=== PATIENT | female | born 1965 | race Caucasian/White ===

== ENCOUNTER 2021-09-19 08:57 | Outpatient (CLI) | payer OTHER, SELFPAY ==
--- NOTE | ~2021-09-19 | MM_ITS ---
EXAMINATION: MM screening mammo implant BI HISTORY: Screening mammogram TECHNIQUE: Craniocaudal and mediolateral oblique images with additional MLO and cc implant displaceme nt views on the left. Craniocaudal and mediolateral oblique views of the breasts without implant disp lacement were obtained using full field digital mammography. CAD analysis was submitted and interpret ed. COMPARISON: 06/01/2018 bilateral diagnostic implant mammogram and limited right breast ultrasound BREAST PARENCHYMAL COMPOSITION: The breasts are heterogeneously dense, which may obscure small masses . FINDINGS: Bilateral breast implants are noted, the right implant is collapsed. There is no evidence o f suspicious mass, calcification, or architectural distortion to suggest malignancy in either breast. There has been no suspicious interval change. IMPRESSION: 1. No mammographic evidence of malignancy. 2. Recommend routine screening mammography in one year. BI-RADS Category 1: Negative Reviewed, dictated and finalized at location A.
== END 2021-09-19 08:58 | disposition home or self-care (01) ==
LOC: ANHIMG 08:59
PROVIDERS: PCP Family Medicine; Visit Provider Obstetrics & Gynecology
DX: Z12.31 Encounter for screening mammogram for malignant neoplasm of breast (principal)
CPT/HCPCS: 77067

== ENCOUNTER 2022-04-02 12:01 | Outpatient (CLI) | payer OTHER, SELFPAY ==
--- NOTE | ~2022-04-02 | US_ITS ---
EXAMINATION: US pelvic complete w TV DATE: 04/02/2022 15:22 INDICATION: Enlarged uterus. TECHNIQUE: Multiple transabdominal and transvaginal sonographic images of the pelvis were obtained. COMPARISON: None. FINDINGS: TRANSABDOMINAL ULTRASOUND: The uterus measures 9.0 x 6.7 x 5.4 cm. There is no free fluid in the pelvis. TRANSVAGINAL ULTRASOUND: The endometrial complex measures 5 mm in thickness. There are nabothian cysts in the cervix measuring up to 5 mm. There is a 1.7 cm intramural fibroid. The right ovary is not visualized. The left ovary measures 2.3 x 2.0 x 2.2 cm. There is normal vascular flow in left ovary. IMPRESSION: 1. Uterine fibroid. 2. Small nabothian cysts in the cervix. Reviewed, dictated and finalized at location B.
--- NOTE | ~2022-04-02 | MMUS_ITS ---
EXAMINATION: MM diagnostic mammo BI, US breast BI complete HISTORY: Palpable lump at 2:00 area of left breast. History of collapsed right breast implant. TECHNIQUE: ML, MLO and CC implant and implant displaced views CAD analysis was submitted and interpre holly. High resolution bilateral complete breast ultrasound was performed, including all 4 quadrants an d subareolar areas. COMPARISON: 09/19/2021 bilateral implant screening mammogram 06/01/2018 bilateral implant diagnostic mammogram and limited right breast ultrasound BREAST PARENCHYMAL COMPOSITION: The breasts are heterogeneously dense, which may obscure small masses . FINDINGS: MAMMOGRAPHIC FINDINGS: Chronic collapsed right breast implant. Left breast implant appears intact and stable since 1. No suspicious mass or architectural distortion, malignant constipation, skin thickening or retraction of either breast is evident. There is heterogeneously dense stroma bilaterally which may obscure small masses. Given the complaint of left breast lump and the dense stroma, bilateral complete ultrasound examination was performed. ULTRASOUND: No suspicious mass or shadowing of either breast is detected. At 2:00 position of left breast there is a parallel circumscribed benign-appearing lymph node measuri ng 3.3 x 7.9 x 4.1 mm. In the retroareolar area of the left breast there is a parallel circumscribed sonolucency adjacent to the implant, measuring 5.9 x 6.9 x 2 mm, without suspicious shadowing, benign in appearance. IMPRESSION: 1. Benign findings; no mammographic evidence of malignancy Chronic collapse right breast implant 2. Routine mammographic screening is recommended BI-RADS Category 2: Benign finding(s). Reviewed, dictated and finalized at location A. IMPRESSION: 1. Benign findings; no mammographic evidence of malignancy Chronic collapse right breast implant 2. Routine mammographic screening is recommended BI-RADS Category 2: Benign finding(s).
== END 2022-04-02 12:02 | disposition home or self-care (01) ==
PROVIDERS: PCP Family Medicine; Visit Provider Obstetrics & Gynecology
DX: N85.2 Hypertrophy of uterus (principal); N92.6 Irregular menstruation, unspecified; N63.22 Unspecified lump in the left breast, upper inner quadrant; D25.9 Leiomyoma of uterus, unspecified; N88.8 Other specified noninflammatory disorders of cervix uteri
CPT/HCPCS: 76641; 76830; 76856; 77066

== ENCOUNTER → 2023-01-16 13:20 | Outpatient (CLI) | payer OTHER, SELFPAY ==
--- NOTE | ~2023-01-16 | MM_ITS ---
EXAMINATION: MM scrn ayo implant BI w lise HISTORY: Screening mammogram TECHNIQUE: Craniocaudal and mediolateral oblique 3-D tomosynthesis images with implant displacement a nd synthetic 2-D images were generated. Craniocaudal and mediolateral oblique views of the breasts wi thout implant displacement were obtained using full field digital mammography. CAD analysis was submi tted and interpreted. COMPARISON: 04/02/2022 diagnostic bilateral mammogram and bilateral complete breast ultrasound 09/19/2021 bilateral screening mammogram BREAST PARENCHYMAL COMPOSITION: The breasts are extremely dense, which lowers the sensitivity of mamm ography. FINDINGS: Chronic right breast implant rupture. There is no evidence of suspicious mass, calcificatio n, or architectural distortion to suggest malignancy in either breast. There has been no suspicious i nterval change. IMPRESSION: 1. No mammographic evidence of malignancy. 2. Recommend routine screening mammography in one year. BI-RADS Category 1: Negative Reviewed, dictated and finalized at location A. Y LEVEL
--- NOTE | ~2023-01-16 | US_ITS ---
EXAMINATION: US pelvic complete w TV DATE: 01/16/2023 14:36 INDICATION: Postmenopausal bleeding Comparison:04/02/2022 TECHNIQUE: Multiple transabdominal and endovaginal sonographic images of the pelvis performed. FINDINGS: The uterus measures 10.9 x 5 x 6.1 cm. The endometrial complex measures 1.7 cm. The right ovary is not visualized, likely atrophic. There are left ovarian follicles and cysts, large st measuring 2.5 cm. Left ovary measures 5 x 3.7 x 2.4 cm. There is a small uterine fibroid measuring 1.7 cm. There are nabothian cysts. There is no free fluid in the pelvis. IMPRESSION: 1. . Thickened endomtrial complex. The differential diagnosis includes endometrial hyperplasia, polyp and carcinoma. Biopsy is recommended. 2: Small uterine fibroid measuring 1.7 cm. Reviewed, dictated and finalized at location A. EGE SCOUTING COORDINATOR IMPRESSION: 1. . Thickened endomtrial complex. The differential diagnosis includes endometr ial hyperplasia, polyp and carcinoma. Biopsy is recommended. 2: Small uterine fibroid measuring 1.7 cm.
== END ==
PROVIDERS: PCP Family Medicine; Visit Provider Obstetrics & Gynecology
DX: Z12.31 Encounter for screening mammogram for malignant neoplasm of breast (principal); N95.0 Postmenopausal bleeding; D25.9 Leiomyoma of uterus, unspecified; R93.89 Abnormal findings on diagnostic imaging of other specified body structures
CPT/HCPCS: 76830; 76856; 77063; 77067

== ENCOUNTER 2024-03-18 08:13 | Outpatient (CLI) | payer OTHER, SELFPAY ==
--- NOTE | ~2024-03-18 | MM_ITS ---
EXAMINATION: MM scrn ayo implant BI w lise HISTORY: Screening mammogram TECHNIQUE: Craniocaudal and mediolateral oblique 3-D tomosynthesis images with implant displacement a nd synthetic 2-D images were generated. Craniocaudal and mediolateral oblique views of the breasts wi thout implant displacement were obtained using full field digital mammography. CAD analysis was submi tted and interpreted. COMPARISON: Comparison to multiple prior studies sequentially, with oldest reviewed study dated 01/2018. BREAST PARENCHYMAL COMPOSITION: Dense: The breasts are heterogeneously dense, which may obscure small masses FINDINGS: There is no evidence of suspicious mass, calcification, or architectural distortion to sugg est malignancy in either breast. There has been no suspicious interval change. IMPRESSION: 1. No mammographic evidence of malignancy. 2. Recommend routine screening mammography in one year. BI-RADS Category 1: Negative Reviewed, dictated and finalized at location A.
== END 2024-03-18 08:14 | disposition home or self-care (01) ==
PROVIDERS: PCP Family Medicine; Visit Provider Obstetrics & Gynecology
DX: Z12.31 Encounter for screening mammogram for malignant neoplasm of breast (principal)
CPT/HCPCS: 77063; 77067

== ENCOUNTER 2024-03-22 08:51 | Outpatient (CLI) | payer OTHER, SELFPAY ==
[2024-03-22 09:07] LABS: Hematocrit 39.7 % (37.0-47.0); Hemoglobin 13.8 g/dL (12.0-15.0); Mean Corpuscular HGB Conc 34.8 g/dl (32-36); Mean Corpuscular Hemoglobin 33.6 pg (26-34); Mean Corpuscular Volume 96.6 fl (80-100); Mean Platelet Volume 9.2 fl (7.4-10.4); Platelet Count Result 277 k/mm3 (150-375); Red Blood Count 4.11 M/mm3 (4.2-5.4); White Blood Count 5.4 K/mm3 (4.5-10.0)
[2024-03-22 10:09] LABS: Alanine Aminotransferase 31 U/L (6-35); Albumin Level 4.6 g/dL (3.5-5.1); Alkaline Phosphatase 77 U/L (38-126); Anion Gap 9 mmol/L (4-12); Aspartate Amino Transferase 28 U/L (14-36); Bilirubin,Total 0.7 mg/dL (0.2-1.3); Blood Urea Nitrogen 18 mg/dL (7-17); Calcium 9.5 mg/dL (8.4-10.2); Carbon Dioxide 22 mmol/L (22-30); Chloride 108 mmol/L (98-107); Cholesterol 165 mg/dL (0-200); Estimated Glomerular Filt Rate > 60; Glucose 110 mg/dL (65-110); HDL Direct 47 mg/dL; Sodium 139 mmol/L (137-145); Triglycerides 286 mg/dL (<150)
[2024-03-22 10:22] LABS: LDL Cholesterol Direct 79 mg/dL
[2024-03-22 10:24] LABS: Free T4 Free Thyroxine 0.81 ng/mL (0.78-2.19)
[2024-03-31 16:03] LABS: Vitamin D 1,25 (OH)2 Total 55 pg/mL (18-72); Vitamin D2 1,25 (OH)2 <8 pg/mL; Vitamin D3 1,25 (OH)2 55 pg/mL
== END 2024-03-22 08:52 | disposition home or self-care (01) ==
LOC: ANHLAB 08:52
PROVIDERS: PCP Family Medicine; Visit Provider Physician Assistant
DX: D64.9 Anemia, unspecified (principal); R53.83 Other fatigue; E55.9 Vitamin D deficiency, unspecified; Z13.220 Encounter for screening for lipoid disorders; Z13.1 Encounter for screening for diabetes mellitus
CPT/HCPCS: 36415; 80053; 80061; 82652; 84439; 84443; 85027

== ENCOUNTER 2025-02-12 11:45 | Emergency (ER) | payer OTHER, SELFPAY ==
[2025-02-12] VITALS (8 sets, daily range): BP systolic 147–175; BP diastolic 102–118; PULSE 104–118; RESP 19–20; TEMP 37.1; O2SAT 98–100
--- NOTE | ~2025-02-12 | CT_ITS ---
Non-contrast Head CT History: Seizure Technique: Axial non-contrast imaging of the brain was performed. Dose reduction technique was used on this scan by utilizing automated exposure control and iterative reconstruction technique. The dose -length product (DLP) was 671.51 mGy-cm. Findings: There is no evidence of intracranial hemorrhage, mass lesion, or acute infarct. Brain par enchyma appears normal. The ventricles and subarachnoid spaces are normal in size. The calvarium ap pears normal. The visualized paranasal sinuses and mastoid air cells are clear. Impression: No significant abnormality seen. Reviewed, dictated and finalized at location . Impression: No significant abnormality seen.
--- NOTE | ~2025-02-12 | XR_ITS ---
Supine portable view of the abdomen Clinical history: OG-tube placement Findings: Of NG tube in satisfactory position. Bowel gas pattern is nonspecific. No evidence for obst ruction or free air. No abnormal mass lesion or calcification is seen. Osseous structures are intact. Impression: OG tube in satisfactory position. Reviewed, dictated and finalized at location . Impression: OG tube in satisfactory position.
--- NOTE | ~2025-02-12 | XR_ITS ---
Portable chest x-ray Comparison: 07/27/2004 Clinical History: Tube placement Findings: Endotracheal tube and NG tube are in satisfactory positions. Lungs are clear, without foca l consolidation or pleural effusion. Cardiomediastinal silhouette is stable. Bones and soft tissues are unremarkable. Impression: Clear lungs. Support tubes, as above. Reviewed, dictated and finalized at location . Impression: Clear lungs. Support tubes, as above.
--- NOTE | ~2025-02-12 | CT_ITS ---
CT ANGIOGRAM NECK AND HEAD History: Seizure. Technique: Serial spiral axial images through the head and neck were obtained during arterial phase I V injection of 100 cc of Omnipaque 350. 3-D postprocessing and MIP images were then reconstructed on the remote workstation. Dose reduction technique was used on this scan by utilizing automated exposur e control and iterative reconstruction technique. The dose-length product (DLP) was 982.39 mGy-cm. CTA neck findings: Bilateral vertebral arteries are patent. Bilateral common carotid, internal carot id, and external carotid arteries are patent. No large vessel occlusion or stenosis. No aneurysm. The proximal right internal carotid artery demonstrates 0% stenosis relative to the normal distal artery lumen diameter. The proximal left internal carotid artery demonstrates 0% stenosis relative to the n ormal distal artery lumen diameter. CTA head findings: Distal vertebral arteries, basilar artery, and posterior cerebral arteries are pat ent. Distal internal carotid arteries, middle cerebral arteries, and anterior cerebral arteries are p atent. No large vessel occlusion or stenosis. No aneurysm. Impression: No significant abnormality. Reviewed, dictated and finalized at location . Impression: No significant abnormality.
--- OUTSIDE RECORDS SUMMARY | 2025-02-12 11:48 | XMS_ITS ---
Author Organization Unknown Medications Medication Instructions Effective Dates (start - stop) Status fluticasone propionate 0.05 MG/ACTUAT Metered Dose Nasal Novi - Completed tizanidine 2 MG Oral Tablet [id number] :00:00Z - Completed - - Compl eted fluticasone propionate 0.05 MG/ACTUAT Metered Dose Nasal Novi - Completed atorvastatin 10 MG Oral Tablet 2024-01-27 T00:00:00Z - Completed tizanidine 2 MG Oral Tablet [id number] :00:00Z - Completed escitalopram 10 MG Oral Tablet 2023-09-11 T00:00:00Z - Completed fluticasone propionate 0.05 MG/ACTUAT Metered Dose Nasal Novi - Completed ropinirole 0.5 MG Oral Tablet 2024-05-04 00:00:00Z - Completed ropinirole 0.5 MG Oral Tablet 2023-09-19 00:00:00Z - Completed naproxen 500 MG Oral Tablet [id number] :00:00Z - Completed fluticasone propionate 0.05 MG/ACTUAT Metered Dose Nasal Novi - Completed naproxen 500 MG Oral Tablet [id number] :00:00Z - Completed naproxen 500 MG Oral Tablet [id number] :00:00Z - Completed naproxen 500 MG Oral Tablet [id number] :00:00Z - Completed fluticasone propionate 0.05 MG/ACTUAT Metered Dose Nasal Novi - Completed atorvastatin 10 MG Oral Tablet 2023-10-15 T00:00:00Z - Completed escitalopram 10 MG Oral Tablet 2024-06-08 T00:00:00Z - Completed escitalopram 10 MG Oral Tablet 2024-03-11 T00:00:00Z - Completed Patient Care team information Name Category Status Period Participants - - Proposed period not known -
--- OUTSIDE RECORDS SUMMARY | 2025-02-12 11:48 | XMS_ITS | Referral Summary ---
Author Organization [facility] Physician Office Building [address] [place] [id number] Care Team Providers Care Sports Complex Attendant Name Role Phone Vani Murillo MD Primary Care Provider [phone] Encounters Date Type Department Care Team Description 01/10/2025 2:00 PM EDUCATIONAL COORDINATOR Office Visit [facility] Orthopaedic Surgery [address] [place] [address] Medicine [address] [place] [address] [place] [address] Kayla Swenson MD Muscle spasticity (Primary Dx) 12/17/2024 Orders Only [facility] Orthopa[facility] Surgery [address] [place] [address] 12th [place] [address] [place] [address] Kayla Swenson MD Muscle spasticity (Primary Dx) 11/17/2024 Telephone [facility] Orthopa[facility] Surgery [address] [place] [address] [address] [place] [address] [place] [address] Kayla Swenson MD from Last 3 Months Allergies No known active allergies Medications naproxen (NAPROSYN) 500 mg tablet Take 1 tablet (500 mg total) by mouth 2 (two) times a day 05/17/2022 Active tiZANidine (ZANAFLEX) 2 mg tablet 06/09/2022 Active atorvastatin (LIPITOR) 10 mg tablet 06/08/2022 Active rOPINIRole (REQUIP) 0.5 mg tablet Take 1 tablet (0.5 mg total) by mouth nightly 04/18/2022 Active montelukast (SINGULAIR) 10 mg tablet 06/09/2022 Active escitalopram (LEXAPRO) 10 mg tablet Take 1 tablet (10 mg total) by mouth daily 03/23/2022 Active vitamin A palmitate 10,000 unit capsule Take 1 capsule (10,000 Units total) by mouth daily Active multivitamin tabletIndicatio ns:Vitamin Deficiency Prevention Take 1 tablet by mouth Active acetaminophen ER (TYLENOL) 650 mg 8 hr tablet Take 1 tablet (650 mg total) by mouth every 8 (eight) hours as needed for pain Active Active Problems Problem Noted Date Diagnosed Date Muscle spasticity 06/10/2022 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 06/10/2022 Unspecified injury of head, sequela 06/10/2022 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) 04/19/2010 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 Social History Tobacco Use Types Packs/Day Years Used Date Smoking Tobacco: Every Day Tobacco Cessation:Ready to Q uit: Not Asked; Counseling Given: Not Answered Comments Unknown Sex and Gender Information Value Date Recorded Sex Assigned at Not on file Legal Sex Female 9:28 PM EDUCATIONAL COORDINATOR Gender Identity Female 11/04/2024 9:42 AM EDUCATIONAL COORDINATOR Sexual Orientation Asexual 11/04/2024 9: 42 AM EDUCATIONAL COORDINATOR Last Filed Vital Signs Vital Sign Reading Time Taken Comments Blood Pressure 137/94 01/10/2025 2:19 PM EDUCATIONAL COORDINATOR Pulse 79 01/10/2025 2:19 PM EDUCATIONAL COORDINATOR Temperature 37.1 C (98.7 F) 06/10/2022 11:10 AM CDT Respiratory Rate 18 04/27/2024 3:27 PM CDT Oxygen Saturation 97% 08/30/2014 2:03 PM CDT Inhaled Oxygen Concentration - - Weight 73.9 kg (163 lb) 01/10/2025 2:19 PM EDUCATIONAL COORDINATOR Height 162.6 cm (5' 4 ) 01/27/2024 3:47 PM EDUCATIONAL COORDINATOR Body Mass Index 27.98 01/27/2024 3:47 PM EDUCATIONAL COORDINATOR Plan of Treatment Not on file Procedures Procedure Name Priority Date/Time Associated Diagnosis Comments BOTOX INJECTION Routine 01/10/2025 2:00 PM EDUCATIONAL COORDINATOR Muscle spasticity from Last 3 Months Results * Botox Injection (01/10/2025 2:00 PM EDUCATIONAL COORDINATOR) Narrative Kayla Swenson MD - 01/10/2025 2:00 PM EDUCATIONAL COORDINATOR Kayla Swenson MD 01/10/2025 2:56 PM Botox Injection Performed by: Kayla Swenson MD Authorized by: Kayla Swenson MD [place] Protocol: Consent Given by: Patient Procedure Details - Botox Injection: Procedure Details: Buy and bill 300 Units Botox 100 Kayla Swenson MD IN CLINIC/BEDSIDE ORDERABLE S Final Result from Last 3 Months Insurance Care Teams Sports Complex Attendant Relationship Specialty Start Date End Date Vani Murillo MD PCP - General Family Medicine 09/28/21
--- OUTSIDE RECORDS SUMMARY | 2025-02-12 11:48 | XMS_ITS | Clinical Summary ---
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 Encounters Date Type Department Care Team Description 01/10/2025 2:00 PM MARKETING EFFECTIVENESS MANAGER Office Visit [facility] Orthopaedic Surgery [address] [facility] [address] [place] [address] [place] [address] Kayla Swenson MD Muscle spasticity (Primary Dx) 12/17/2024 Orders Only [facility] Orthopaedic Surgery [address] [facility] [address] [place] [address] [place] [id number] Kayla Swenson MD Muscle spasticity (Primary Dx) 11/17/2024 Telephone [facility] Orthopaedic Surgery [address] [facility] [address] [place] [address] [place] [id number] Kayla Swenson MD from Last 3 Months Social History Tobacco Use Types Packs/Day Years Used Date Smoking Tobacco: Every Day Tobacco Cessation:Ready to Q uit: Not Asked; Counseling Given: Not Answered Comments Unknown Sex and Gender Information Value Date Recorded Sex Assigned at Not on file Legal Sex Female 9:28 PM MARKETING EFFECTIVENESS MANAGER Gender Identity Female 11/04/2024 9:42 AM MARKETING EFFECTIVENESS MANAGER Sexual Orientation Asexual 11/04/2024 9: 42 AM MARKETING EFFECTIVENESS MANAGER Obstetrics History Last Filed Vital Signs Vital Sign Reading Time Taken Comments Blood Pressure 137/94 01/10/2025 2:19 PM MARKETING EFFECTIVENESS MANAGER Pulse 79 01/10/2025 2:19 PM MARKETING EFFECTIVENESS MANAGER Temperature 37.1 C (98.7 F) 06/10/2022 11:10 AM CDT Respiratory Rate 18 04/27/2024 3:27 PM CDT Oxygen Saturation 97% 08/30/2014 2:03 PM CDT Inhaled Oxygen Concentration - - Weight 73.9 kg (163 lb) 01/10/2025 2:19 PM MARKETING EFFECTIVENESS MANAGER Height 162.6 cm (5' 4 ) 01/27/2024 3:47 PM MARKETING EFFECTIVENESS MANAGER Body Mass Index 27.98 01/27/2024 3:47 PM MARKETING EFFECTIVENESS MANAGER Plan of Treatment Health Maintenance Due Date Last Done Comments Breast Cancer Screening-Mammogram 1967 Cervical Cancer Screening 1967 Colon Cancer Screening-Colonoscopy 1967 Depression Screening 1967 Hepatitis C Screening 1967 Hepatitis B Screening 1985 Regular Well Visit/Exam 18-64 1985 Pneumococcal vaccine <65 (1 of 2 - PCV) 1986 Zoster Vaccine (1 of 2) 2017 Covid-19 Vaccine (3 - season) 08/01/202408/2021, 02/04/2021 Influenza Vaccine (#1) 2024 09/18/2021, 2018 DTaP/Tdap/Td Vaccine (3 - Td or Tdap) 09/18/2031, 03/20/2009 Procedures Procedure Name Priority Date/Time Associated Diagnosis Comments BOTOX INJECTION Routine 01/10/2025 2:00 PM MARKETING EFFECTIVENESS MANAGER Muscle spasticity from Last 3 Months Results * Botox Injection (01/10/2025 2:00 PM MARKETING EFFECTIVENESS MANAGER) Narrative Kayla Swenson MD - 01/10/2025 2:00 PM MARKETING EFFECTIVENESS MANAGER Kayla Swenson MD 01/10/2025 2:56 PM Botox Injection Performed by: Kayla Swenson MD Authorized by: Kayla Swenson MD [place] Protocol: Consent Given by: Patient Procedure Details - Botox Injection: Procedure Details: Buy and bill 300 Units Botox 100 Kayla Swenson MD IN CLINIC/BEDSIDE ORDERABLE S Final Result from Last 3 Months Insurance [employer] [employer] [id number] Care Teams Rejector Relationship Specialty Start Date End Date Vani Murillo MD PCP - General Family Medicine 09/28/21
[2025-02-12] MEDS: LORazepam INJ (*CRX) 2 MG/ML VIAL 4 MG ×3 (11:51→12:19)
[2025-02-12] MEDS: LEVETIRACETAM (11:53)
[2025-02-12] MEDS: [UNRECOGNIZED DRUG - OTHER] (11:53)
--- NOTE | 2025-02-12 12:00 | PC.NURSE ---
Pt arrived to ED room 14 seizing, Dr. Ba at bedside, initiated two PIVs. Pt placed on 15L non-rebreather. Dr. Ba VORB for 4mg ativan IVP stat. Administered at 1151. Pt continues to seize. EDP VORB to administer 4mg ativan IVP stat, administered at 1155.EDP VORB for 4500 mg keppra IV stat. Administered at 1153, infused at 1200. Pt weaned to 2L [place] oxygen per Dr. Ba. VSS.
--- NOTE | 2025-02-12 12:08 | ED.SEIZURE ---
HPI - Seizure General Chief Complaint: Seizure Stated Complaint: seizure Time Seen by Provider: 02/12/25 12:06 History of Present Illness HPI Narrative: 59-year-old female with a history of traumatic brain injury approximately 30 years prior with residual right-sided upper extremity spasticity, and this a Lithuanian the right eye and visual deficits. She is wheelchair-bound. Patient presents to the emergency department actively seizing. According to the who provides the majority collateral formation patient was in her normal state of health last night, this morning woke up with a right-sided facial droop and then had a seizure that lasted several minutes approximately 30 minutes prior to arrival. Stopped on its own but she did not regain consciousness or mentation and then had another profound seizure that lasted approximately 15 minutes, currently extricate from the vehicle outside of the emergency department placed into resuscitation room 14 for evaluation actively seizing and suspected status epilepticus. Remainder of history per family and EMR. Patient had a normal well visit with her OBGYN 2 days ago without any concerns recently. No head trauma recently or falls. Patient has been otherwise in her normal state of health according to the . No fever chills at home. Her blood pressure has been on the higher side lately but she is not presently on any kind of anticoagulation or antihypertensives. Related Data Home Medications ?Medication ?Instructions ?Recorded ?Confirmed ?Last Taken ?Type cholecalciferol (vitamin D3) 125 125 mcg PO DAILY 08/02/20 03/10/24 Unknown History mcg (5,000 unit) capsule multivitamin 1 cap PO DAILY 08/02/20 03/10/24 Unknown History Allergies Allergy/AdvReac Type Severity Reaction Status Date / Time quinapril Allergy Unknown Unknown Verified 02/10/25 08:55 Sulfa (Sulfonamide Allergy Unknown Unknown Verified 02/10/25 08:55 Antibiotics) sulfamethizole Allergy Unknown Unknown Verified 02/10/25 08:55 sulfanilamide Allergy Unknown Unknown Verified 02/10/25 08:55 trimethoprim Allergy Unknown Unknown Verified 02/10/25 08:55 Review of Systems Review of Systems: As reviewed above in HPI [facility] Past Medical History Medical History Allergic rhinitis Normal x3 LGSIL (low grade squamous intraepithelial dysplasia) Medical marijuana use Foot drop, right Chronic depression Muscle spasticity Traumatic brain injury 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 RLS (restless legs syndrome) Surgical History Surgical History History of ankle surgery History of tubal ligation H/O breast surgery H/O LEEP H/O colposcopy with cervical biopsy Family History Family History Father Family history of pancreatic cancer Mixed hyperlipidemia Grandparent Family history of coronary artery disease Family history of pancreatic cancer Sibling Diabetes mellitus Social History Social History Smoking status: Current some day smoker Second hand tobacco smoke exposure: No Alcohol intake: current Drinks per week: 10 Substance use: current Substance use type: marijuana Other substance usage details: medicinal marijuana Lack of Transportation: No Lack of Food: Never True Current Housing: I Have Housing Concerned About Future Housing: No Difficulty Paying Gas/Electric Bills: No Difficulty Paying for Meds: No Currently Unemployed: No Education: High School Diploma/GED Difficulty w/ Childcare or Family Care: No Living arrangements: with family Exam Narrative: GENERAL: Actively seizing with right-sided extremity shaking worse than left, tonic clonic seizure activity HEAD: [Normocephalic, atraumatic.] EYES: Left lateral gaze preference, asymmetric pupils with pupils 5 mm on the right side, 3 mm on the left side in both reactive ENT: Nares clear, no rhinorrhea or epistaxis. Mucous membranes moist. No bleeding or lacerations NECK: Supple. CHEST: Hypoxic but clear to auscultation, no respiratory distress HEART: [Regular rate and rhythm]. No murmur heard. [Normal peripheral pulses.] ABDOMEN: [Soft, nondistended], [nontender], [No rigidity or guarding] EXTREMITIES: Normal range of motion. [No edema.] SKIN: Warm, dry, no rash. NEURO: Actively seizing, not alert or oriented, tonic clonic seizure activity right-sided worse than left, asymmetric pupils PSYCH: Unable to assess Course Vital Signs Vital signs: Vital Signs Temperature 37.1 C 02/12/25 11:52 Pulse Rate 113 H 02/12/25 11:52 Respiratory Rate 19 02/12/25 11:52 Blood Pressure 166/102 H 02/12/25 11:52 Pulse Oximetry 98 02/12/25 11:52 Oxygen Delivery Non-Rebreather Mask 02/12/25 11:52 Oxygen Flow Rate 15 02/12/25 11:52 Temperature 37.1 C 02/12/25 11:52 Pulse Rate 104 H 02/12/25 14:19 Respiratory Rate 19 02/12/25 14:19 Blood Pressure 152/115 H 02/12/25 14:19 Pulse Oximetry 100 02/12/25 14:19 Oxygen Delivery Mechanical Ventilation 02/12/25 12:50 Oxygen Flow Rate 15 02/12/25 11:52 Fraction of Inspired Oxygen 50 02/12/25 12:50 Procedures EJ/Peripheral Line Arm L: EJ/Peripheral Line Date: 02/12/25 EJ/Peripheral Line Time: 12:00 Time Out Performed: No Skin Cleansed in Sterile Fashion: No Ultrasound Guided: No Size (gauge): 20 IV Secured and Dressing Applied: Yes Patient Tolerated Procedure: well and no complications Other: EJ/Peripheral Line Date: 02/12/25 EJ/Peripheral Line Time: 12:01 Time Out Performed: No Skin Cleansed in Sterile Fashion: No Ultrasound Guided: No Size (gauge): 20 IV Secured and Dressing Applied: Yes Patient Tolerated Procedure: well and no complications Additional Comments: Left antecubital Intubation Intubation #1: Intubation Date: 02/12/25 Intubation Time: 12:42 Time out performed: Yes sedative: other (Propofol ) Mg Given: 150 paralytic: Rocuronium Mg Given: 100 Laryngoscope: fiber optic video scope Tube Size (cm): 7.5 Method of Intubation: orotracheal Number of Attempts: 1 Tube Secured Depth (cm): 21 Tube Secured Location: lips Tube Placement Confirmation: visualized tube passing through cords, equal breath sounds bilaterally, no breath sounds over epigastrium and confirmation by capnometry Patient Tolerated Procedure: well and no complications Intubation Complications: none MDM - Seizure MDM Narrative Medical decision making narrative: 59-year-old female with history of traumatic brain injury 30 years ago, patient has chronic contractures in the right upper extremity, chronic pupillary deficits, wheelchair-bound. She was otherwise in her normal state of health, woke up this morning at 8:00 a.m. according to the with right-sided gaze preference and facial droop and then had a generalized tonic-clonic seizure that was witnessed and lasted about 5-10 minutes. There was a brief moment where the seizure activity had stopped and but she did not regain consciousness and then had another prolonged seizure lasting approximately 15 minutes and actively seizing here in the emergency department consistent with status epilepticus. Patient has shaking of the extremities with tonic clonic activity right side worse than left side, left-sided gaze preference, asymmetric pupils. No evidence trauma. She is severely hypertensive the blood pressure to 125/154, hypoxic at 90%, tachycardic in the 130s to 140s. Two IVs were established by myself in the left upper extremity and she was given 4 mg aliquots of IV Ativan x2 with improvement in the seizure activity. She was given a 60 milligram/kilogram load of Keppra totaling approximately 4500mg IV and her seizure activity has since aborted. She is postictal at this time. Her blood pressure has come down into the 154/101 range. Tachycardia also improved to 108. She was down titrated to nasal cannula and removed from a non-rebreather.. Suspicion presently is for traumatic brain injury, intraparenchymal hemorrhage, ischemic stroke, hemorrhagic stroke, electrolyte disturbances. CT angiography and CT head was ordered as a stroke protocol given the last known well within 24 hours. She went to bed last night normal and woke up this morning with right-sided deficits worse than normal with new right-sided facial palsy and seizure activity. Given the timeline of events she is not a candidate for TNK and we will assess if there is any hemorrhagic component. Current status is very guarded and if she has another seizure patient will require intubation and additional medication management. Patient will be transferred to higher level of care center with EEG and neurology capabilities, Neuro ICU. Workup ordered. Patient had a 3rd seizure without return to baseline and CT scan despite a 3rd dose of 4 mg IV Ativan. At this time endotracheal intubation was indicated secondary directory status, hypoxia. Induction with 150 mg of propofol, paralytic 100mg of rocuronium. Patient was successfully intubated, confirmed on chest x-ray. Spoke to the U transfer center and was connected with stroke neurologist Dr. Alejo bear at [facility] who recommended time critical ER to ER transfer for potential status epilepticus and suspected potential CVA. Spoke to the ER physician Dr. Del Castillo who accepted the transfer. [facility] [employer] [facility] after flights declined due to weather. Patient placed on propofol infusion and up titrated rapidly secondary to waking up and still exhibiting seizure-like activity. Patient was transferred successfully. Medical Records Attestation: I reviewed the patient's medical records. Lab Data Attestation: I reviewed the patient's lab results. 02/12/25 12:46 02/12/25 12:46 Labs: Lab Results 02/12/25 02/12/25 Range/Units 12:46 13:12 WBC 8.3 (4.5-10.0) K/mm3 RBC 3.79 L (4.2-5.4) M/mm3 Hgb 12.5 (12.0-15.0) g/dL Hct 37.2 (37.0-47.0) % MCV 98.2 (80-100) fl MCH 33.0 (26-34) pg MCHC 33.6 (32-36) g/dl RDW 13.2 (11.5-14.5) % Plt Count 235 (150-375) k/mm3 MPV 9.4 (7.4-10.4) fl Immature Gran % (Auto) 0.5 (0-0.5) % Neut % (Auto) 84.4 H (45.5-73.1) % Lymph % (Auto) 10.2 L (18.3-44.2) % [place] % (Auto) 4.6 (2.6-8.5) % Eos % (Auto) 0.1 (0-4.4) % Baso % (Auto) 0.2 (0.2-1.2) % Lymph # (Auto) 0.84 L (0.9-3.2) K/mm3 [place] # (Auto) 0.4 (0.1-0.6) K/mm3 Eos # (Auto) 0.0 (0-0.3) K/mm3 Baso # (Auto) 0.0 (0.0-0.1) K/mm3 Abs Immat Gran (auto) 0.04 H (0.00-0.031) K/mm3 Absolute Neuts (auto) 7.0 H (1.3-6.7) K/mm3 Absolute Nucleated RBC 0.000 (0.0-0.012) K/mm3 Nucleated RBC % 0.0 (0.0-0.2) % PT 15.3 H (11.1-14.7) Seconds INR 1.2 APTT 26.9 (22.3-36.8) Seconds Sodium 137 (137-145) mmol/L Potassium 4.1 (3.4-5.0) mmol/L Chloride 102 (98-107) mmol/L Carbon Dioxide 23 (22-30) mmol/L Anion Gap 12 (4-12) mmol/L BUN 15 (7-17) mg/dL Creatinine 0.47 L (0.7-1.0) mg/dL Estim Creat Clear Calc 109 ml/min Estimated GFR > 60 (59 - ) Glucose 114 H (65-110) mg/dL Calcium 8.0 L (8.4-10.2) mg/dL Total Bilirubin 0.4 (0.2-1.3) mg/dL AST 30 (14-36) U/L ALT 32 (6-35) U/L Alkaline Phosphatase 66 (38-126) U/L Total Protein 6.0 L (6.3-8.2) g/dL Albumin 3.9 (3.5-5.1) g/dL Urine Color Yellow (Yellow) Urine Appearance Cloudy H (Clear) Urine pH 8.0 (5.0-9.0) Ur Specific [place] 1.028 (1.001-1.035) Urine Protein 1+ H (Negative) mg/dL Urine Glucose (UA) Negative (Negative) mg/dL Urine Ketones Negative (Negative) mg/dL Ur Blood (Man) Negative (Negative) Urine Nitrate Negative (Negative) Urine Bilirubin Negative (Negative) Urine Urobilinogen 0.2 (<2.0) mg/dL Leukocyte Esterase Rfl Negative (Negative) JAZZ/UL Urine RBC 0-2 (0-2) /hpf Urine WBC 0-5 (0-3) /hpf Ur Squamous Epith Cells None seen (Few) /hpf Urine Bacteria None seen /hpf Urine Casts 0-2 Urine Opiates Screen Negative (Negative) Urine Methadone Screen Negative (Negative) Ur Barbiturates Screen Negative (Negative) Ur Phencyclidine Scrn Negative (Negative) Ur Amphetamine Screen Negative (Negative) U Benzodiazepines Scrn Negative (Negative) Urine Cocaine Screen Negative (Negative) U Cannabinoids Screen Positive A (Negative) Ethyl Alcohol < 10 (<10) mg/dL Imaging Data Attestation: I personally reviewed and interpreted this imaging study as follows: My impression: Impressions Head CT 02/12/25 12:32 Impression: No significant abnormality seen. Head/Neck CTA 02/12/25 12:33 Impression: No significant abnormality. Chest X-Ray 02/12/25 12:59 Impression: Clear lungs. Support tubes, as above. Abdomen X-Ray 02/12/25 13:39 Impression: OG tube in satisfactory position. Critical Care Time Critical Care Time Critical Care Time: Yes Total Critical Care Time: 80 (Critical care time is bill exclusive of the separately billed procedures above.) Discharge Plan Discharge Clinical Impression: Status epilepticus, Suspected cerebrovascular accident (CVA) Patient Disposition: Acute Care Hospital Condition: Serious Patient Language: Belarusian Prescriptions: No Action multivitamin Capsule 1 cap PO DAILY cholecalciferol (vitamin D3) 125 mcg (5,000 unit) capsule 125 mcg PO DAILY Fluzone Quad 1394-1990 (PF) 60 mcg (15 mcg x 4)/0.5 mL syringe 0.5 ml IM ONCE Qty: 1 0RF tizanidine 2 mg tablet 4 mg PO Q8H PRN (Reason: muscle spasticity) Qty: 540 3RF Rx Instructions: fluticasone propionate 50 mcg/actuation spray,suspension 1 spray NASAL BID Qty: 47.4 3RF Rx Instructions: administer into each nostril ropinirole 0.5 mg tablet 0.5 mg PO QID Qty: 360 1RF bupropion HCl [Wellbutrin XL] 150 mg tablet extended release 24 hr 150 mg PO QAM Qty: 30 2RF escitalopram oxalate 10 mg tablet See Rx Instructions .ROUTE .COMPLEX Qty: 90 1RF Dose Instruction: TAKE 1 TABLET BY MOUTH EVERY DAY Rx Instructions: TAKE 1 TABLET BY MOUTH EVERY DAY naproxen 500 mg tablet 500 mg PO BID Qty: 180 2RF Follow-up/Referrals: UNKNOWN,DOCTOR [Primary Care Provider] -
--- NOTE | 2025-02-12 12:09 | ECG_ITS ---
Test Date: 2025-02-12 13:09:29 Measurements Intervals Bailey Rate: 115 P: 62 WI: 141 QRS: 30 QRSD: 102 T: 16 QT: 340 QTc: 471 Interpretive Statements SINUS TACHYCARDIA Electronically Signed On 02-13-2025 13:58:16 CDT by Kike Wooten D.O
--- OUTSIDE RECORDS SUMMARY | 2025-02-12 12:10 | XMS_ITS | Referral Summary ---
Author Organization [facility] Physician Office Building [address] [place] [id number] Care Team Providers Care Content Management Consultant Name Role Phone Vani Murillo MD Primary Care Provider [phone] Encounters Date Type Department Care Team Description 01/10/2025 2:00 PM SALT PLANT OPERATOR Office Visit [facility] Orthopaedic Surgery [address] [place] [address] Medicine [address]th [place] [address] [place] [address] Kayla Swenson MD Muscle spasticity (Primary Dx) 12/17/2024 Orders Only [facility] Orthopaedic Surgery [address] [place] [address] 12th [place] [address] [place] [address] Kayla Swenson MD Muscle spasticity (Primary Dx) 11/17/2024 Telephone [facility] Orthopaedic Surgery [address] [place] [address] 12th [place] [address] [place] [address] Kayla Swenson MD from Last 3 Months [...] on file Legal Sex Female 9:28 PM SALT PLANT OPERATOR Gender Identity Female 11/04/2024 9:42 AM SALT PLANT OPERATOR Sexual Orientation Asexual 11/04/2024 9: 42 AM SALT PLANT OPERATOR Last Filed Vital Signs Vital Sign Reading Time Taken Comments Blood Pressure 137/94 01/10/2025 2:19 PM SALT PLANT OPERATOR Pulse 79 01/10/2025 2:19 PM SALT PLANT OPERATOR Temperature 37.1 C (98.7 F) 06/10/2022 11:10 AM CDT Respiratory Rate 18 04/27/2024 3:27 PM CDT Oxygen Saturation 97% 08/30/2014 2:03 PM CDT Inhaled Oxygen Concentration - - Weight 73.9 kg (163 lb) 01/10/2025 2:19 PM SALT PLANT OPERATOR Height 162.6 cm (5' 4 ) 01/27/2024 3:47 PM SALT PLANT OPERATOR Body Mass Index 27.98 01/27/2024 3:47 PM SALT PLANT OPERATOR Plan of Treatment Not on file Procedures Procedure Name Priority Date/Time Associated Diagnosis Comments BOTOX INJECTION Routine 01/10/2025 2:00 PM SALT PLANT OPERATOR Muscle spasticity from Last 3 Months Results * Botox Injection (01/10/2025 2:00 PM SALT PLANT OPERATOR) Narrative Kayla Swenson MD - 01/10/2025 2:00 PM SALT PLANT OPERATOR Kayla Swenson MD 01/10/2025 2:56 PM Botox Injection Performed by: Kayla Swenson MD Authorized by: Kayla Swenson MD [place] Protocol: Consent Given by: Patient Procedure Details - Botox Injection: Procedure Details: Buy and bill 300 Units Botox 100 Kayla Swenson MD IN CLINIC/BEDSIDE ORDERABLE S Final Result from Last 3 Months Insurance Care Teams Content Management Consultant Relationship Specialty Start Date End Date Vani Murillo MD PCP - General Family Medicine 09/28/21
--- OUTSIDE RECORDS SUMMARY | 2025-02-12 12:10 | XMS_ITS | Clinical Summary ---
Author Organization [facility] Physician Office Building [address] [place] [id number] Care Team Providers Care Life Teacher Name Role Phone Vani Murillo MD Primary Care Provider [phone] Allergies No known active allergies Medications naproxen [...] Department Care Team Description 01/10/2025 2:00 PM NEWS INTERN Office Visit [facility] Orthopaedic Surgery [address]th [place] [address] [place] [address] Kayla Swenson MD Muscle spasticity (Primary Dx) 12/17/2024 Orders Only [facility] Orthopaedic Surgery [address]th [place] [address] [place] [id number] Kayla Swenson MD Muscle spasticity (Primary Dx) 11/17/2024 Telephone [facility] Orthopaedic Surgery [address]th [place] [address] [place] [phone] Kayla Swenson MD from Last 3 Months Social History Tobacco Use Types Packs/Day Years Used Date Smoking Tobacco: Every Day Tobacco Cessation:Ready to Q uit: Not Asked; Counseling Given: Not Answered Comments Unknown Sex and Gender Information Value Date Recorded Sex Assigned at Not on file Legal Sex Female 9:28 PM NEWS INTERN Gender Identity Female 11/04/2024 9:42 AM NEWS INTERN Sexual Orientation Asexual 11/04/2024 9: 42 AM NEWS INTERN Obstetrics History Last Filed Vital Signs Vital Sign Reading Time Taken Comments Blood Pressure 137/94 01/10/2025 2:19 PM NEWS INTERN Pulse 79 01/10/2025 2:19 PM NEWS INTERN Temperature 37.1 C (98.7 F) 06/10/2022 11:10 AM CDT Respiratory Rate 18 04/27/2024 3:27 PM CDT Oxygen Saturation 97% 08/30/2014 2:03 PM CDT Inhaled Oxygen Concentration - - Weight 73.9 kg (163 lb) 01/10/2025 2:19 PM NEWS INTERN Height 162.6 cm (5' 4 ) 01/27/2024 3:47 PM NEWS INTERN Body Mass Index 27.98 01/27/2024 3:47 PM NEWS INTERN Plan of Treatment Health Maintenance Due Date [...] Comments BOTOX INJECTION Routine 01/10/2025 2:00 PM NEWS INTERN Muscle spasticity from Last 3 Months Results * Botox Injection (01/10/2025 2:00 PM NEWS INTERN) Narrative Kayla Swenson MD - 01/10/2025 2:00 PM NEWS INTERN Kayla Swenson MD 01/10/2025 2:56 PM Botox Injection Performed by: Kayla Swenson MD Authorized by: Kayla Swenson MD [place] Protocol: Consent Given by: Patient Procedure Details - Botox Injection: Procedure Details: Buy and bill 300 Units Botox 100 Kayla Swenson MD IN CLINIC/BEDSIDE ORDERABLE S Final Result from Last 3 Months Insurance [facility] [id number] Care Teams Life Teacher Relationship Specialty Start Date End Date Vani Murillo MD PCP - General Family Medicine 09/28/21
--- OUTSIDE RECORDS SUMMARY | 2025-02-12 12:10 | XMS_ITS ---
Author Organization Unknown Medications Medication Instructions Effective Dates (start - stop) Status fluticasone propionate 0.05 MG/ACTUAT Metered Dose Nasal [place] - Completed tizanidine 2 MG Oral Tablet [id number] :00:00Z - Completed - - Compl eted fluticasone propionate 0.05 MG/ACTUAT Metered Dose Nasal [place] - Completed atorvastatin 10 MG Oral Tablet 2024-01-27 T00:00:00Z - Completed tizanidine 2 MG Oral Tablet [id number] :00:00Z - Completed escitalopram 10 MG Oral Tablet 2023-09-11 T00:00:00Z - Completed fluticasone propionate 0.05 MG/ACTUAT Metered Dose Nasal [place] - Completed ropinirole 0.5 MG Oral Tablet 2024-05-04 00:00:00Z - Completed ropinirole 0.5 MG Oral Tablet 2023-09-19 00:00:00Z - Completed naproxen 500 MG Oral Tablet [id number] :00:00Z - Completed fluticasone propionate 0.05 MG/ACTUAT Metered Dose Nasal [place] - Completed naproxen 500 MG Oral Tablet [id number] :00:00Z - Completed naproxen 500 MG Oral Tablet [id number] :00:00Z - Completed naproxen 500 MG Oral Tablet [id number] :00:00Z - Completed fluticasone propionate 0.05 MG/ACTUAT Metered Dose Nasal [place] - Completed atorvastatin 10 MG Oral Tablet 2023-10-15 T00:00:00Z - Completed escitalopram 10 MG Oral Tablet 2024-06-08 T00:00:00Z - Completed escitalopram 10 MG Oral Tablet 2024-03-11 T00:00:00Z - Completed Patient Care team information Name Category Status Period Participants - - Proposed period not known -
--- NOTE | 2025-02-12 12:29 | PC.NURSE ---
Pt returned to room [address] after having another seizure and 4mg IVP ativan administered at 1219, pt still seizing. EDP Dr. Ba at bedside VORB to intubate. ED RT called. EDP VORB to administer 150 mg of propofol IVP and 100mg of rocuronium IVP. pt receiving manual ventilations via BVM by ED RT. propofol administered at 1236. rocuronium administered at 1236. LR 1L bolus administered at 1237. 7.[address] Ba at 1238 at 23 at the lip. 16FR OG inserted by Dr. Ba at 1240, 75 at the lip. XR at bedside for portably chest xray.
[2025-02-12] MEDS: PROPOFOL IV EMULSION 100 ML 9.04 MG IV CONT (12:46)
[2025-02-12] MEDS: RAPID SEQUENCE INTUBATION KIT 1 EACH (12:48)
[2025-02-12] MEDS: PROPOFOL IV EMULSION 200 MG/20 ML VIAL 150 MG IV PUSH (12:48)
[2025-02-12] MEDS: ROCURONIUM BROMIDE 50 MG/5 ML VIAL 100 MG IV PUSH (12:48)
[2025-02-12] MEDS: SODIUM CHLORIDE 0.9% IV 1,000 ML 999 ML IV CONT (12:49)
[2025-02-12 12:51] LABS: Basophils Percent Auto 0.2 % (0.2-1.2); Eosinophils Percent Auto 0.1 % (0-4.4); Hematocrit 37.2 % (37.0-47.0); Hemoglobin 12.5 g/dL (12.0-15.0); Immature Granulocyte Absolute 0.04 K/mm3 (0.00-0.031); Immature Granulocyte Percent A 0.5 % (0-0.5); Lymphocytes Absolute Auto 0.84 K/mm3 (0.9-3.2); Lymphocytes Percent Auto 10.2 % (18.3-44.2); Mean Corpuscular HGB Conc 33.6 g/dl (32-36); Mean Corpuscular Volume 98.2 fl (80-100); Mean Platelet Volume 9.4 fl (7.4-10.4); Monocytes Absolute Auto 0.4 K/mm3 (0.1-0.6); Monocytes Percent Auto 4.6 % (2.6-8.5); Neutrophils Percent Auto 84.4 % (45.5-73.1); Platelet Count Result 235 k/mm3 (150-375); Red Blood Count 3.79 M/mm3 (4.2-5.4); Red Cell Distribution Width 13.2 % (11.5-14.5); White Blood Count 8.3 K/mm3 (4.5-10.0)
--- NOTE | 2025-02-12 12:53 | PC.NURSE ---
Per EDP Dr. Ba, to initiate propofol drip at 20mcg/kg/min.
[2025-02-12 13:03] LABS: Alanine Aminotransferase 32 U/L (6-35); Albumin Level 3.9 g/dL (3.5-5.1); Alkaline Phosphatase 66 U/L (38-126); Anion Gap 12 mmol/L (4-12); Aspartate Amino Transferase 30 U/L (14-36); Bilirubin,Total 0.4 mg/dL (0.2-1.3); Blood Urea Nitrogen 15 mg/dL (7-17); Carbon Dioxide 23 mmol/L (22-30); Chloride 102 mmol/L (98-107); Estimated CRCL calculation 109 ml/min; Estimated Glomerular Filt Rate > 60; Glucose 114 mg/dL (65-110); Potassium 4.1 mmol/L (3.4-5.0); Sodium 137 mmol/L (137-145)
[2025-02-12 13:06] LABS: Ethanol < 10 mg/dL (<10)
[2025-02-12 13:17] LABS: INR 1.2; Prothrombin Time 15.3 Seconds (11.1-14.7)
[2025-02-12 13:18] LABS: Partial Thromboplastin Time 26.9 Seconds (22.3-36.8)
[2025-02-12 13:22] LABS: Add Urine Microscopic? YES; Appearance Urine Cloudy (Clear); Bacteria Urine None Seen /hpf; Bilirubin Urine Negative (Negative); Blood Urine Negative (Negative); Color Urine Yellow (Yellow); Glucose Urine UA Negative (Negative); Ketones Urine Negative (Negative); Leukocyte Esterase Ur Negative LEU/UL (Negative); Nitrate Urine Negative (Negative); Non Pathogenic Casts 0-2; Protein Urine 1+ mg/dL (Negative); RBC Urine 0-2 /hpf (0-2); Specific Grav Ur 1.028 (1.001-1.035); Squamous Epithelial Cell Urine None Seen /hpf (Few); Urobilinogen Urine 0.2 mg/dL (<2.0); WBC Urine 0-5 /hpf (0-3)
[2025-02-12 13:35] LABS: Amphetamine Screen Urine Negative (Negative); Barbiturate Screen Urine Negative (Negative); Benzodiazepines Screen Urine Negative (Negative); Cannabinoid Screen Urine Positive (Negative); Cocaine Screen Urine Negative (Negative); Methadone Screen Urine Negative (Negative); Opiate Screen Urine Negative (Negative); Phencyclidine Screen Urine Negative (Negative)
--- NOTE | 2025-02-12 17:34 | PC.NURSE ---
12:47 [facility] called and declined for weather. 13:09 [facility] called and declined for weather.
== END 2025-02-12 14:19 | disposition short-term general hospital (02) ==
PROVIDERS: Emergency Provider Student in an Organized Health Care Education/Training Program
DX: G40.901 Epilepsy, unspecified, not intractable, with status epilepticus (principal); R29.810 Facial weakness; S06.9XAS Unspecified intracranial injury with loss of consciousness status unknown, sequela; M62.48 Contracture of muscle, other site; H21.563 Pupillary abnormality, bilateral; Z99.3 Dependence on wheelchair; F32.A Depression, unspecified; G25.81 Restless legs syndrome; F17.200 Nicotine dependence, unspecified, uncomplicated; Z79.899 Other long term (current) drug therapy; X58.XXXS Exposure to other specified factors, sequela
CPT/HCPCS: 31500; 36415; 70450; 70496; 70498; 71045; 74018; 80053; 80307; 81001; 82077; 85025; 85610; 85730; 93005; 96361; 96374; 96375; 99285; J1953; J2060; J2704; J7030; Q9967

== ENCOUNTER 2025-04-27 09:27 | Outpatient (CLI) | payer OTHER, SELFPAY ==
--- OUTSIDE RECORDS SUMMARY | 2025-04-27 09:34 | XMS_ITS | Clinical Summary ---
Author Organization [facility] Address [facility] [place] [address] Care Team Providers Care Chief Physical Therapist Name Role Phone Vani Murillo MD Primary Care Provider [phone] Source Comments [facility],non-owned Affiliates and Associated Physician Practices is amultiple site organization consisting of ambulatory clinics and hospital sitesin [place], [place], [place] and [place]. This disclosure is being madepursuant to the Care Everywhere program and may not contain all information available regarding this patient. Last updated 18.[facility] Medications * Be aware that medications may not be up to date on this document. Alwaysverify current medications with the patient. atorvastatin (Lipitor) 10 MG tablet Take 1 (one) tablet by mouth once daily 01/27/2025 Active buPROPion XL 24hr (Wellbutrin-XL) 150 MG tablet Take 1 (one) tablet by mouth every morning 12/03/2024 Active escitalopram (Lexapro) 10 MG tablet Take 1 (one) tablet by mouth once daily 12/03/2024 Active naproxen (Naprosyn) 500 MG tablet Take 1 (one) tablet by mouth 2 times daily 01/21/2025 Active rOPINIRole (Requip) 0.5 MG tablet Take 1 (one) tablet by mouth 4 times daily 11/29/2024 Active tiZANidine (Zanaflex) 2 MG tablet Take 1 (one) tablet by mouth every 8 hours as needed for Muscle Spasms 10/05/2024 Active acetaminophen CR (Tylenol Arthritis Pain) 650 MG tablet Take 1 (one) tablet by mouth every 8 hours as needed Active levETIRAcetam (Keppra) 1000 MG tablet Take 1 (one) tablet by mouth 2 times daily 60 tablet 11 02/16/2025 Active Active Problems Problem Noted Date Diagnosed Date Status epilepticus 02/12/2025 Seizures 02/12/2025 Right sided weakness 02/12/2025 Acute respiratory failure with hypoxia Endotracheally intubated 02/12/2025 TBI (traumatic brain injury) 02/12/2025 HTN (hypertension) 02/12/2025 Depression 02/12/2025 Muscle spasticity 02/12/2025 Acute encephalopathy 02/12/2025 Encounters Date Type Department Care Team Description 04/12/2025 5:23 PM CDT - 04/12/2025 11:59 PM CDT Hospital Encounter [facility] MRI [address] [place] [address] Ted Camarillo MD Discharge Disposition: Home or Self Care 02/13/2025 Travel 02/12/2025 3:09 PM CDT - 02/16/2025 12:44 PM CDT Hospital Encounter [facility] 5N ACUTE [address] [place] [address] Keven Hagan MD Sun, Philip Y, MD Wang, Fajun, MD Jones, Ronald L, MD Neurology Discharge Disposition: Home or Self Care from Last 3 Months Social History Tobacco Use Types Packs/Day Years Used Date Smoking Tobacco: Every Day Cigarettes Tobacco Cessation:Ready to Q uit: Not Asked; Counseling Given: Not Answered Alcohol Use Standard Drinks/Week Comments Yes 0 (1 standard drink = 0.6 oz pur e alcohol) AUDIT-C Answer Date Recorded Q1: How often do you have a drink containing alcohol? 4 or more times a week 02/12/2025 Q2: How many drinks containi ng alcohol do you have on a typical day when you are drinking? 1 or 2 Q3: How often do you have si x or more drinks on one occasion? Never 02/12/2025 Overall Financial Resource Strain (CARDIA) Answe r Date Recorded How hard is it for you to pa y for the very basics like food, housing, medical care, and heating? Patient unable to answer 02/12/2025 [facility] - Occupational Stress Questionnaire Answer Date Recorded Do you feel stress - tense, restless, nervous, or anxious, or unable to sleep at night because your mind is troubled all the time - these days? Patient unable to answer 02/12/2025 Hunger Vital Sign Answer Date Recorded Within the past 12 months, y ou worried that your food would run out before you got the money to buy more. Patient unable to answer 02/12/2025 Within the past 12 months, t he food you bought just didn't last and you didn't have money to get more. Patient unable to answer 02/12/2025 PRAPARE - Transportation Answer Date Re corded In the past 12 months, has l ack of transportation kept you from medical appointments or from getting medications? Patient unable to answer 02/12/2025 In the past 12 months, has l ack of transportation kept you from meetings, work, or from getting things needed for daily living? Patient unable to answer 02/12/2025 Housing Stability Vital Sign Answer Kwame e Recorded In the last 12 months, was t here a time when you were not able to pay the mortgage or rent on time? Patient unable to answer 02/12/2025 In the past 12 months, how m any times have you moved where you were living? 0 02/12/2025 At any time in the past 12 m onths, were you homeless or living in a alf (including now)? Patient unable to answer 02/12/2025 Comments Unknown Sex and Gender Information Value Date Recorded Sex Assigned at Not on file Legal Sex Female 6:17 AM [employer] Gender Identity Not on file Sexual Orientation Not on file Last Filed Vital Signs Vital Sign Reading Time Taken Comments Blood Pressure 140/86 02/16/2025 11:49 AM CDT Pulse 82 02/16/2025 11:49 AM CDT Temperature 36.7 C (98 F) 02/16/2025 11:49 AM CDT Respiratory Rate 18 02/16/2025 11:49 AM CDT Oxygen Saturation 96% 02/16/2025 11:49 AM CDT Inhaled Oxygen Concentration 30% 02/13/2025 3 :00 PM CDT Weight 75 kg (165 lb 5.5 oz) 02/13/2025 12:40 AM CDT Height 170.2 cm (5' 7) 02/13/2025 12:40 AM CDT Body Mass Index 25.9 02/13/2025 12:40 AM CDT Plan of Treatment Upcoming Encounters Date Type Department Care Team (Late st Contact Info) Description 07/13/2025 3:00 PM CDT Office Visit [facility] - Neurology [address] [facility], [place] [address] Amber Cota PA-C [address] [place] [address] Health Maintenance Due Date Last Done Comments COLOGUARD (AGES 45-75) - COLON CA SCREENING 1967 COLON MONITORING 1967 COLONOSCOPY - COLON CA SCREENING 1967 CT COLONOGRAPHY - COLON CA SCREENING 1967 Colorectal Cancer Screening 1967 FIT - COLON CA SCREENING 1967 FLEX SIG - COLON CA SCREENING 1967 MAMMOGRAM 1967 PAP SMEAR 1967 HIV SCREENING 1982 HEPATITIS C SCREENING 11/13/1985 DTAP/TDAP/TD VACCINES (1 - Tdap) 1986 HEPATITIS B VACCINE (1 of 3 - 19+ 3-dose series) 1986 PNEUMOCOCCAL VACCINE 50+ (1 of 2 - PCV) 1986 ZOSTER VACCINE (1 of 2) 2017 DEPRESSION SCREENING 12/01/2024 COVID-19 VACCINE Completed 10/06/2024, 03/2023, 09/10/2022, Additional history exists INFLUENZA VACCINE Completed 10/06/2024, , 09/19/2022, Additional history exists HIB VACCINE Aged Out No longer eligi ble based on patient's age to complete this topic HPV VACCINE Aged Out No longer eligi ble based on patient's age to complete this topic MENINGOCOCCAL (Group B) VACCINE SHARED DECISION-MAKING Aged Out No longer eligible based on patient's age to complete this topic MENINGOCOCCAL GROUPS A/C/Y/W VACCINE Aged Out No longer eligible based on patient's age to complete this topic Procedures Procedure Name Priority Date/Time Associated Diagnosis Comments PHOSPHORUS BLOOD Routine 02/16/2025 1:09 AM CDT MAGNESIUM BLOOD Routine 02/16/2025 1:09 AM CDT CBC W AUTO DIFFERENTIAL Routine 02/16/2025 1:09 AM CDT BASIC METABOLIC PANEL (CALCIUM TOTAL) Routine 02/16/2025 1:09 AM CDT PHOSPHORUS BLOOD Routine 02/15/2025 2:06 AM CDT MAGNESIUM BLOOD Routine 02/15/2025 2:06 AM CDT CBC W AUTO DIFFERENTIAL Routine 02/15/2025 2:06 AM CDT BASIC METABOLIC PANEL (CALCIUM TOTAL) Routine 02/15/2025 2:06 AM CDT MRI BRAIN WWO CONTRAST Routine 02/14/2025 1:50 AM CDT Acute encephalopathy PHOSPHORUS BLOOD Routine 02/14/2025 12:1 6 AM CDT MAGNESIUM BLOOD Routine 02/14/2025 12:16 AM CDT CBC W AUTO DIFFERENTIAL Routine 02/14/2025 12:16 AM CDT BASIC METABOLIC PANEL (CALCIUM TOTAL) Routine 02/14/2025 12:16 AM CDT GLUCOSE - POINT OF CARE Routine 02/13/2025 6:33 PM CDT XR CHEST 1VW PORTABLE STAT 02/13/2025 3:42 PM CDT Acute respiratory failure with hypoxia BLOOD GASES ART + COOX PANEL Routine 02/13/2025 3:02 PM CDT GLUCOSE - POINT OF CARE Routine 02/13/2025 12:20 PM CDT XR ABDOMEN KUB PORTABLE STAT 02/13/2025 12:14 PM CDT Acute encephalopathy BLOOD GASES ART + COOX PANEL Timed 02/13/2025 10:13 AM CDT GLUCOSE - POINT OF CARE Routine 02/13/2025 10:12 AM CDT BASIC METABOLIC PANEL (CALCIUM TOTAL) STAT 02/13/2025 8:34 AM CDT GLUCOSE - POINT OF CARE Routine 02/13/2025 5:48 AM CDT LACTIC ACID BLOOD Routine 02/13/2025 12: 27 AM CDT LIPID PROFILE Routine 02/13/2025 12:27 AM CDT HEMOGLOBIN A1C Routine 02/13/2025 12:27 AM CDT PHOSPHORUS BLOOD Routine 02/13/2025 12:2 7 AM CDT MAGNESIUM BLOOD Routine 02/13/2025 12:27 AM CDT CBC W AUTO DIFFERENTIAL Routine 02/13/2025 12:27 AM CDT BASIC METABOLIC PANEL (CALCIUM TOTAL) Routine 02/13/2025 12:27 AM CDT AMMONIA Routine 02/12/2025 8:29 PM CDT TSH REFLEX FREE T4 FREDDY 02/12/2025 8: 10 PM CDT TROPONIN-I HIGH SENSITIVE REFLEX 1HOUR Timed 02/12/2025 8:10 PM CDT BLOOD TYPE VERIFICATION STAT 02/12/2025 8:09 PM CDT URINE DRUG SCREEN IMMUNOASSAY STAT 02/12/2025 4:21 PM CDT URINALYSIS REFLEX MICROSCOPIC REFLEX CULTURE STAT 02/12/2025 4:21 PM CDT GLUCOSE - POINT OF CARE Routine 02/12/2025 4:12 PM CDT CK BLOOD STAT 02/12/2025 4:08 PM CDT PHOSPHORUS BLOOD STAT 02/12/2025 4:08 PM CDT MAGNESIUM BLOOD STAT 02/12/2025 4:08 PM CDT LACTIC ACID BLOOD STAT 02/12/2025 4:0 8 PM CDT BLOOD GASES SHARAD + COOX PANEL STAT 02/12/2025 4:08 PM CDT XR CHEST 1VW PORTABLE STAT 02/12/2025 4:02 PM CDT Right sided weakness TYPE + SCREEN PANEL STAT 02/12/2025 3 :59 PM CDT TROPONIN-I HIGH SENSITIVE BASELINE + 1HR STAT 02/12/2025 3:59 PM CDT PT-INR SLH STAT 02/12/2025 3:59 PM CDT COMPREHENSIVE METABOLIC PANEL STAT 02/12/2025 3:59 PM CDT CBC W AUTO DIFFERENTIAL STAT 02/12/2025 3:[address] ANGIO BRAIN NECK STROKE STAT 02/12/2025 3:49 PM CDT Right sided weakness CT BRAIN STROKE STAT 02/12/2025 3:48 PM CDT Right sided weakness CREATININE - POCT INTERFACED Routine 02/12/2025 3:39 PM CDT INR WHOLE BLOOD - POINT OF CARE (IP) STROKE Routine 02/12/2025 3:37 PM CDT from Last 3 Months Results * (ABNORMAL) CBC W AUTO DIFFERENTIAL (02/16/2025 1:09 AM CDT) Only the most recent of5 resultswithin the time period is included. WBC 8.6 4.0 - 10.7 x10E9/L 02/16/2025 1:57 AM [facility] RBC Count 3.45(L) 3.90 - 5.20 x10E12/L 02/16/2025 1:57 AM [facility] Hemoglobin 11.2(L) 11.9 - 15.8 g/dL 02/16/2025 1:57 AM [facility] Hematocrit 32.6(L) 34.8 - 46.1 % 02/16/2025 1:57 AM [facility] MCV 94.5 80.0 - 98.0 fL 02/16/2025 1:57 AM [facility] MCH 32.5 26.7 - 33.6 pg 02/16/2025 1:57 AM [facility] MCHC 34.4 31.7 - 36.3 g/dL 02/16/2025 1:57 AM [facility] RDW-CV 13.0 11.3 - 14.8 % 02/16/2025 1:57 AM [facility] Platelet Count 237 150 - 420 x10E9/L 02/16/2025 1:57 AM [facility] MPV 10.0 7.8 - 11.4 fL 02/16/2025 1:57 AM [facility] Neutrophil % 63.3 41.0 - 74.0 % 02/16/2025 1:57 AM [facility] Lymphocyte % 24.1 17.0 - 47.0 % 02/16/2025 1:57 AM [facility] Monocyte % 9.9 3.0 - 11.0 % 02/16/2025 1:57 AM [facility] Eosinophil % 2.1 0.0 - 7.0 % 02/16/2025 1:57 AM [facility] Basophil % 0.4 0.0 - 1.6 % 02/16/2025 1:57 AM T [facility] Immature Granulocytes % 0.2 0.0 - 1.0 % 02/16/2025 1:57 AM T [facility] Neutrophil Absolute 5.42 1.60 - 7.50 x10E9/L 02/16/2025 1:57 AM T [facility] Lymphocyte Absolute 2.06 1.00 - 4.40 x10E9/L 02/16/2025 1:57 AM T [facility] Monocyte Absolute 0.85 0.15 - 1.00 x10E9/L 02/16/2025 1:57 AM T [facility] Eosinophil Absolute 0.18 0.00 - 0.60 x10E9/L 02/16/2025 1:57 AM T [facility] Basophil Absolute 0.03 0.00 - 0.13 x10E9/L 02/16/2025 1:57 AM [facility] Blood BLOOD SPECIMEN / Unknown Lab Venipuncture / Unknown 02/16/2025 1:09 AM CDT 02/16/2025 1:54 AM CDT us Keven Hagan MD LAB - HEMATOLOGY ORDERA BLES Final Result [facility] [address] [place] [address], [facility] [phone] * (ABNORMAL) BASIC METABOLIC PANEL (CALCIUM TOTAL) (02/16/2025 1:09 AM CDT) Only the most recent of5 resultswithin the time period is included. BUN 9 7 - 26 mg/dL 02/16/2025 2:20 AM [facility] Creatinine 0.50(L) 0.56 - 0.96 mg/dL 02/16/2025 2:20 AM [facility] Sodium 144 136 - 145 mmol/L 02/16/2025 2:20 AM [facility] Potassium 3.4(L) 3.5 - 4.5 mmol/L 02/16/2025 2:20 AM [facility] Chloride 110(H) 98 - 107 mmol/L 02/16/2025 2:20 AM [facility] CO2 23 22 - 29 mmol/L 02/16/2025 2:20 AM [facility] Glucose 102(H) 70 - 99 mg/dL 02/16/2025 2:20 AM [facility] Calcium 9.4 8.4 - 10.2 mg/dL 02/16/2025 2:20 AM [facility] Anion Gap 11 6 - 16 02/16/2025 2:20 AM [facility] BUN/Creatinine Ratio 18 7 - 23 02/16/2025 2:20 AM [facility] Osmolality Calculated 297(H) 275 - 295 mOsm/kg 02/16/2025 2:20 AM [facility] eGFR by CKD-EPI >90 >=90 mL/min/1.7 3 m2 02/16/2025 2:20 AM [facility] Blood BLOOD SPECIMEN / Unknown Lab Venipuncture / Unknown 02/16/2025 1:09 AM CDT 02/16/2025 1:53 AM CDT us Keven Hagan MD LAB - CHEMISTRY ORDERAB LES Final Result [facility] [address] [place] [id number], [facility] [phone] * PHOSPHORUS BLOOD (02/16/2025 1:09 AM CDT) Only the most recent of5 resultswithin the time period is included. Phosphorus 4.1 2.9 - 5.1 mg/dL 02/16/2025 2:20 AM T [facility] Blood BLOOD SPECIMEN / Unknown Lab Venipuncture / Unknown 02/16/2025 1:09 AM CDT 02/16/2025 1:53 AM CDT us Keven Hagan MD LAB - CHEMISTRY ORDERAB LES Final Result [facility] [address] [place] [address], [facility] [phone] * MAGNESIUM BLOOD (02/16/2025 1:09 AM CDT) Only the most recent of5 resultswithin the time period is included. Magnesium 1.8 1.6 - 2.6 mg/dL 02/16/2025 2:20 AM CDT [facility] Blood BLOOD SPECIMEN / Unknown Lab Venipuncture / Unknown 02/16/2025 1:09 AM CDT 02/16/2025 1:53 AM CDT Keven Hagan MD LAB - CHEMISTRY ORDERAB LES Final Result [facility] [address] [place] [address], [facility] [phone] * MRI Brain Wwo Contrast (02/14/2025 1:50 AM CDT) Anatomical Region Laterality Modality Head Magnetic Resonan ce 02/14/2025 8:17 AM CDT Impressions 02/15/2025 8:56 AM CDT IMPRESSION: Severe motion artifact degrades image quality and limits evaluation especially in the contrasted sequences, within these exam limitations the following assessment is made. 1.Tiny focus of restricted diffusion at the posterior aspect of the right gyrus rectus, possibly artifactual, in the appropriate clinical setting. If there is clinical concern, a short-term repeat study could be obtained for further evaluation. Otherwise, no evidence of acute infarct. 2.No acute intracranial hemorrhage identified. 3.Severe motion artifact limits evaluation for enhancement within the brain. The report is dictated by Anthony Huston MD (oral and maxillofacial surgery resident) > Dictated by Anthony Huston MD (Staff Anesthetist) 02/14/2025 8:17 AM IMiladys MD have personally reviewed and interpreted this examination/study. > Interpreting Provider: Miladys Kaur MD on 02/15/2025 8:56 AM Narrative 02/15/2025 8:56 AM CDT PROCEDURE: MRI BRAIN WWO CONTRAST, DATE/TIME OF EXAM: 02/14/2025 1:51 AM, LOCATION [facility] INDICATION: G93.40: Acute encephalopathy ADDITIONAL CLINICAL INFORMATION: Ordering Provider Reason For Exam: Stroke Technologist Note: None Additional: None. EXAMINATION: Magnetic resonance imaging (MRI) of the brain without and with contrast CONTRAST: GADOBUTROL 1 MMOL/ML IV SSM SO:7 mL TECHNIQUE: MRI of the brain was performed prior to and following the uneventful administration of 7 mL Gadavist intravenous gadolinium contrast according to standard protocol. COMPARISON: CTA brain and neck 02/12/2025 FINDINGS: Severe motion artifact degrades image quality and limits evaluation especially in the contrasted sequences, within these exam limitations the following assessment is made. No evidence of acute or chronic hemorrhage is identified. A tiny focus of restricted diffusion is seen at the posterior aspect of the right gyrus rectus (series 4 image 11). Scattered mineralization in the bilateral basal ganglia. There is a small area of T2/FLAIR hyperintensity in the lateral left temporal lobe which likely represents gliosis, series 8 image 9, and is adjacent to a small area of encephalomalacia, more prominent on prior CT. There is mild-moderate cerebral volume loss with associated ex vacuo ventricular dilatation. No mass effect or midline shift is seen. Periventricular white matter FLAIR hyperintensities likely represent sequelae of chronic small vessel ischemic disease. Severe motion artifact limits evaluation for enhancement. The corpus callosum and sella appear normal. The posterior fossa, brainstem, and craniocervical junction appear normal. The visualized portions of the orbits, paranasal sinuses, and mastoids appear normal aside from trace mastoid effusions. Normal flow voids are demonstrated in the carotid arteries and basilar artery. The calvarium and visualized cervical spine appear normal. Procedure Note Miladys Kaur MD - 02/15/2025 PROCEDURE: MRI BRAIN WWO CONTRAST, DATE/TIME OF EXAM: 02/14/2025 1:51AM, LOCATION [facility] INDICATION: G93.40: Acute encephalopathy ADDITIONAL CLINICAL INFORMATION: Ordering Provider Reason For Exam: Stroke Technologist Note: None Additional: None. EXAMINATION: Magnetic resonance imaging (MRI) of the brain without andwith contrast CONTRAST: GADOBUTROL 1 MMOL/ML IV SSM SO:7 mL TECHNIQUE: MRI of the brain was performed prior to and following the uneventful administration of 7 mL Gadavist intravenous gadoliniumcontrast according to standard protocol. COMPARISON: CTA brain and neck 02/12/2025 FINDINGS: Severe motion artifact degrades image quality and limits evaluation especially in the contrasted sequences, within these exam limitationsthe following assessment is made. No evidence of acute or chronic hemorrhage is identified. A tiny focusof restricted diffusion is seen at the posterior aspect of the right gyrus rectus (series 4 image 11). Scattered mineralization in the bilateralbasal ganglia. There is a small area of T2/FLAIR hyperintensity in the lateral left temporal lobe which likely represents gliosis, series 8 image 9,and is adjacent to a small area of encephalomalacia, more prominent on prior CT. There is mild-moderate cerebral volume loss with associated ex vacuo ventricular dilatation. No mass effect or midline shift is seen. Periventricular white matter FLAIR hyperintensities likely represent sequelae of chronic small vessel ischemic disease. Severe motionartifact limits evaluation for enhancement. The corpus callosum and sella appear normal. The posterior fossa, brainstem, and craniocervical junctionappear normal. The visualized portions of the orbits, paranasal sinuses, and mastoids appear normal aside from trace mastoid effusions. Normal flow voids are demonstrated in the carotid arteries and basilar artery. The calvariumand visualized cervical spine appear normal. IMPRESSION: Severe motion artifact degrades image quality and limits evaluation especially in the contrasted sequences, within these exam limitationsthe following assessment is made. 1.Tiny focus of restricted diffusion at the posterior aspect of theright gyrus rectus, possibly artifactual, in the appropriate clinical setting.If there is clinical concern, a short-term repeat study could be obtainedfor further evaluation. Otherwise, no evidence of acute infarct. 2.No acute intracranial hemorrhage identified. 3.Severe motion artifact limits evaluation for enhancement within the brain. The report is dictated by Anthony Huston MD (oral and maxillofacial surgery resident) > Dictated by Anthony Huston MD (Staff Anesthetist) 02/14/2025 8:17 AM I, Miladys Kaur MD have personally reviewed and interpretedthis examination/study. > Interpreting Provider: Miladys Kaur MD on 02/15/2025 8:56 AM Wes Genao MD MR ORDERABLES Final Result * GLUCOSE - POINT OF CARE (02/13/2025 6:33 PM CDT) Only the most recent of5 resultswithin the time period is included. Glucose WB/POC 93 70 - 99 mg/dL 02/13/2025 6:38 PM CDT [facility] Specimen Type Cap Fingerstick 2024 6:38 PM CDT [facility] Blood BLOOD SPECIMEN / Unknown 02/13/2025 6:33 PM CDT 02/13/2025 6:38 PM CDT Wes Genao MD LAB - POINT OF CARE ORDERABLES F inal Result [facility] [address] [place] [address], [facility] [phone] * XR Chest 1Vw Portable (02/13/2025 3:42 PM CDT) Only the most recent of2 resultswithin the time period is included. Anatomical Region Laterality Modality Chest Digital Radiogra phy 02/14/2025 4:53 PM CDT Impressions 02/14/2025 4:53 PM CDT IMPRESSION: No acute cardiopulmonary abnormalities. > Interpreting Provider: Alberta Cortez MD on 02/14/2025 4:53 PM Narrative 02/14/2025 4:53 PM CDT PROCEDURE: XR CHEST 1VW PORTABLE DATE/TIME OF EXAM: 02/13/2025 3:43 PM CLINICAL INFORMATION: None relevant/not provided if blank. Indication: J96.01: Acute respiratory failure with hypoxia (HCC) Additional History: COMPARISON: 02/12/2025. FINDINGS: Interval extubation and removal of enteric tube. Single frontal view of the chest demonstrates a normal sized heart and pulmonary vasculature. Mild retrocardiac atelectasis. No focal consolidation, pleural effusion or pneumothorax. No acute osseous abnormalities. Procedure Note Alberta Cortez MD - 02/14/2025 PROCEDURE: XR CHEST 1VW PORTABLE DATE/TIME OF EXAM: 02/13/2025 3:43 PM CLINICAL INFORMATION: None relevant/not provided if blank. Indication: J96.01: Acute respiratory failure with hypoxia (HCC) Additional History: COMPARISON: 02/12/2025. FINDINGS: Interval extubation and removal of enteric tube. Single frontal view of the chest demonstrates a normal sized heart and pulmonary vasculature. Mild retrocardiac atelectasis. No focal consolidation, pleural effusion or pneumothorax. No acute osseous abnormalities. IMPRESSION: No acute cardiopulmonary abnormalities. > Interpreting Provider: Alberta Cortez MD on 02/14/2025 4:53 PM Wes Genao MD DIAGNOSTIC IMAGING ORDERABLES Fi nal Result * (ABNORMAL) BLOOD GASES ART + COOX PANEL (02/13/2025 3:02 PM T) Only the most recent of2 resultswithin the time period is included. pH Arterial 7.41 7.35 - 7.45 pH 02/13/2025 3:13 PM [facility] pO2 Arterial 160(H) 80 - 100 mmHg 02/13/2025 3:13 PM [facility] pCO2 Arterial 36 35 - 45 mmHg 3:13 PM [facility] HCO3 Arterial 22.8 20.0 - 30.0 mmol/L 02/13/2025 3:13 PM [facility] BE Arterial -1.4 -2.0 - 2.0 mmol/L 02/13/2025 3:13 PM [facility] Oxyhemoglobin Arterial 97.2 % 02/13/2025 3:13 PM [facility] Dexoyhemoglobin (HHB) % 1.3 % 02/13/2025 3:13 PM [facility] Methemoglobin 1.0 0.0 - 2.0 % 02/13/2025 3:13 PM [facility] Carboxyhemoglobin 0.5 0.0 - 2.0 % 2024 3:13 PM [facility] O2 Content Arterial 17.8 Interpret within clinical context ml/dL 02/13/2025 3:13 PM [facility] Hemoglobin by COOX 12.8 12.0 - 15.6 g/dL 02/13/2025 3:13 PM [facility] O2 Saturation Arterial 99 90 - 100 % 02/13/2025 3:13 PM [facility] FI O2 Arterial 30.0 % 02/13/2025 3:13 PM CDT [facility] Blood, arterial ARTERIAL BLOOD SPECIMEN / Unknown Arterial Puncture / Unknown 02/13/2025 3:02 PM CDT 02/13/2025 3:06 PM CDT Narrative [facility] - 02/13/2025 3:13 PM CDT Carboxyhemoglobin Normal Concentration: Non-smokers: 0-2%; Smokers: 0-9%; Toxic: >20% us Wes Genao MD LAB - BLOOD GASES ORDERABLES Fin al Result [facility] [address] [place] [address], [facility] [phone] * XR Abdomen Kub Portable (02/13/2025 12:14 PM CDT) Anatomical Region Laterality Modality Abdomen Digital Radiogra phy 02/14/2025 10:0 8 AM CDT Impressions 02/14/2025 10:09 AM CDT IMPRESSION: Enteric tube terminates in the gastric antral pyloric region. > Interpreting Provider: Alberta Cortez MD on 02/14/2025 10:09 AM Narrative 02/14/2025 10:09 AM CDT PROCEDURE: XR ABDOMEN KUB PORTABLE DATE/TIME OF EXAM: 02/13/2025 12:14 PM CLINICAL INFORMATION: None relevant/not provided if blank. Indication: G93.40: Acute encephalopathy Additional History: COMPARISON: None. Procedure Note Alberta Cortez MD - 02/14/2025 PROCEDURE: XR ABDOMEN KUB PORTABLE DATE/TIME OF EXAM: 02/13/2025 12:14 PM CLINICAL INFORMATION: None relevant/not provided if blank. Indication: G93.40: Acute encephalopathy Additional History: COMPARISON: None. IMPRESSION: Enteric tube terminates in the gastric antral pyloric region. > Interpreting Provider: Alberta Cortez MD on 02/14/2025 10:09 AM us Wes Genao MD DIAGNOSTIC IMAGING ORDERABLES Fi nal Result * HEMOGLOBIN A1C (02/13/2025 12:27 AM CDT) Hemoglobin A1c 5.4 <=5.6 % 02/13/2025 7:57 AM CDT [facility] Estimated Average Glucose 108 mg/dL 02/13/2025 7:57 AM CDT [facility] Comment: HbA1c Interpretation: Normal : < 5.7% Pre-diabetes: 5.7-6.4% Diabetes: Equal to or greater than 6.5% Test results diagnostic of diabetes should be repeated for confirmation. Treatment target values recommended by ADA and other clinical organizations should be used to evaluate metabolic control in patients. Reference: [place] [employer], Standards of Care in Diabetes -2020 In patients 70 years and older consider HbA1c target range of 7.0-7.5% (Reference: Venkata Glynn et al. JAMDA. 2012) The Sebia assay for the measurement of HbA1c is a National Glycohemoglobin Standardization Program (NGSP) certified method. Blood BLOOD SPECIMEN / Unknown Venipuncture / Unknown 02/13/2025 12:27 AM CDT 02/13/2025 12:34 AM CDT us Wes Genao MD LAB - CHEMISTRY ORDERABLES Final Result [address] [address], [facility] [phone] * LACTIC ACID BLOOD (02/13/2025 12:27 AM CDT) Only the most recent of2 resultswithin the time period is included. Pathologist [facility] Lactic Acid-Stat 0.9 <=2.0 mmol/L 02/13/2025 1:08 AM CDT [facility] Blood BLOOD SPECIMEN / Unknown Venipuncture / Unknown 02/13/2025 12:27 AM CDT 02/13/2025 12:34 AM CDT us Wes Genao MD LAB - CHEMISTRY ORDERABLES Final Result [address] [address], [facility] [phone] * (ABNORMAL) LIPID PROFILE (02/13/2025 12:27 AM CDT) Cholesterol Total 180 <200 mg/dL 02/13/2025 1:02 AM [facility] HDL 42 >40 mg/dL 02/13/2025 1:02 AM [facility] Comment: ATP III Classification of HDL Cholesterol: <40 mg/dL: Considered a major risk factor. >60 mg/dL: Considered a negative risk factor. LDL Calculated 73 <100 mg/dL 02/13/2025 1:02 AM [facility] Comment: ATP III Classification of LDL Cholesterol: <100 mg/dL: Optimal 100 - 129 mg/dL: Near Optimal/Above Optimal 130 - 159 mg/dL: Borderline High 160 - 189 mg/dL: High >190 mg/dL: Very High Triglycerides 326(H) <150 mg/dL 02/13/2025 1:02 AM [facility] Comment: ATP III Classification of Triglycerides: <150 mg/dL: Normal 150 - 199 mg/dL: Borderline High 200 - 400 mg/dL: High >500 mg/dL: Very High Blood BLOOD SPECIMEN / Unknown Venipuncture / Unknown 02/13/2025 12:27 AM CDT 02/13/2025 12:34 AM CDT us Wes Gneao MD LAB - CHEMISTRY ORDERABLES Final Result [facility] [address] [place] [address], [facility] [phone] * AMMONIA (02/12/2025 8:29 PM CDT) Ammonia 45 <=72 umol/L 02/12/2025 9:04 PM T [facility] Blood BLOOD SPECIMEN / Unknown Venipuncture / Unknown 02/12/2025 8:29 PM CDT 02/12/2025 8:38 PM CDT us Wes Genao MD LAB - CHEMISTRY ORDERABLES Final Result [address] [address], [facility] [phone] * (ABNORMAL) TROPONIN-I HIGH SENSITIVE REFLEX 1HOUR (02/12/2025 8:10 PM CDT) Troponin I High Sensitive 19(H) <=14 ng/L 02/12/2025 9:21 PM CDT [facility] Delta Troponin I HS 02/12/2025 9:21 PM CDT [facility] Comment:Delta value intentio carri not calculated. Baseline to 1 hour specimen collection interval exceeded. Blood BLOOD SPECIMEN / Unknown Venipuncture / Unknown 02/12/2025 8:10 PM CDT 02/12/2025 8:39 PM CDT us Keven Hagan MD LAB - CHEMISTRY ORDERAB LES Final Result Performing Organization Address [facility]/ZIP Co de Phone Number [address] [address], [facility] [phone] * TSH REFLEX FREE T4 (02/12/2025 8:10 PM CDT) TSH 2.871 0.350 - 4.940 uIU/mL 02/12/2025 9:56 PM CDT [facility] Blood BLOOD SPECIMEN / Unknown Venipuncture / Unknown 02/12/2025 8:10 PM CDT 02/12/2025 8:39 PM CDT us Wes Genao MD LAB - CHEMISTRY ORDERABLES Final Result Performing Organization Address [facility]/State/ZIP Co de Phone Number [address] [address], [facility] [phone] * BLOOD TYPE VERIFICATION (02/12/2025 8:09 PM CDT) ABO Rh B POS 02/12/2025 9:0 8 PM CDT [facility] Blood Bank BLOOD SPECIMEN / Unknown Arterial Puncture / Unknown 02/12/2025 8:09 PM CDT 02/12/2025 8:38 PM CDT us Wes Genao MD LAB - BLOOD BANK ORDERABLES Zara l Result [facility] [address] [place] [address], [place] [phone] * (ABNORMAL) URINALYSIS REFLEX MICROSCOPIC REFLEX CULTURE (02/12/2025 4:21 PM CDT) Color UA Yellow Yellow, Straw 02/12/2025 4:35 PM CDT [facility] Clarity UA Clear Clear 02/12/2025 4:35 PM CDT [facility] Glucose UA Normal Normal 02/12/2025 4:35 PM T [facility] Bilirubin UA Negative Negative 02/12/2025 4:35 PM CDT [facility] Ketone UA Negative Negative 02/12/2025 4:35 PM T [facility] Specific [place] UA >1.050(H) 1.005 - 1.030 02/12/2025 4:35 PM T [facility] Comment:Specific gravity res ults confirmed by refractometer. Blood UA Negative Negative 02/12/2025 4:35 PM [facility] pH UA 8.0 5.0 - 9.0 pH 02/12/2025 4:35 PM T [facility] Protein UA Trace(A) Negative 02/12/2025 4:35 PM CDT [facility] Urobilinogen UA Normal Normal mg/dL 025 4:35 PM T [facility] Nitrite UA Negative Negative 02/12/2025 4:35 PM T [facility] Leukocyte UA Negative Negative 02/12/2025 4:35 PM [facility] Urine URINE SPECIMEN OBTAINED VIA [employer] / Unknown Collection / Unknown 02/12/2025 4:21 PM CDT 02/12/2025 4:23 PM CDT Narrative [facility] - 02/12/2025 4:35 PM CDT us Keven Hagan MD LAB - URINALYSIS ORDERA BLES Final Result [facility] [address] [place] [address], [facility] [phone] * (ABNORMAL) URINE DRUG SCREEN IMMUNOASSAY (02/12/2025 4:21 PM CDT) [facility] Amphetamines Screen Urine Negative Negative : < 1000 ng/mL 02/12/2025 5:20 PM CDT [facility] Barbiturates Screen Urine Negative Negative : < 200 ng/mL 02/12/2025 5:20 PM CDT [facility] Benzodiazepine Screen Urine Negative Negative : < 200 ng/mL 02/12/2025 5:20 PM CDT [facility] Opiates Urine Negative Negative : < 300 ng/mL 02/12/2025 5:20 PM [facility] Cocaine Metabolites Urine Negative Negative : < 300 ng/mL 02/12/2025 5:20 PM [facility] Phencyclidine Screen Urine Negative Negative : < 25 ng/ml 02/12/2025 5:20 PM T [facility] Cannabinoids Screen Urine Positive(A) Negative : <50 ng/mL 02/12/2025 5:20 PM T [facility] Comment:Positive urine canna binoids (THC) screening results should be confirmed by another generally accepted non-immunological method such as gas chromatography or mass spectrometry. Methadone Screen Urine Negative Negative : < 300 ng/mL 02/12/2025 5:20 PM [facility] Fentanyl Screen Urine Negative Negative : <1.5 ng/mL 02/12/2025 5:20 PM T [facility] Urine URINE / Unknown Collection / Unknown 02/12/2025 4:21 PM CDT 02/12/2025 4:23 PM CDT [facility] - 02/12/2025 5:20 PM CDT The Urine Toxicology Screening Panel does not screen for Propoxyphene, Meprobamate, Carisoprodol, Trazodone, [id number] medications and/or volatiles (Acetone, Isopropanol, Methanol or Ethylene Glycol). Ethanol, Salicylate, Acetaminophen, Tricyclic Antidepressants and several therapeutic drugs may be individually assayed in serum or plasma specimen. Toxicology testing by the [facility] is an aid to medical diagnosis and treatment of patients. No documented chain of custody was maintained. Results are intended to be used for clinical purposes only. us Keven Hagan MD LAB - URINE CHEMISTRY O RDERABLES Final Result [facility] [address] [place] [address], [facility] [phone] * (ABNORMAL) BLOOD GASES SHARAD + COOX PANEL (02/12/2025 4:08 PM CDT) pH Venous 7.36 7.32 - 7.42 pH 02/12/2025 4:16 PM [facility] pO2 Venous 35 35 - 40 mmHg 02/12/2025 4:16 PM [facility] pCO2 Venous 43 40 - 50 mmHg 02/12/2025 4:16 PM [facility] HCO3 Venous 24.3 20 - 30 mmol/L 02/12/2025 4:16 PM [facility] Base Excess Venous -1.3 -2.0 - 2.0 mmol/L 02/12/2025 4:16 PM [facility] Oxyhemoglobin Venous 48.9 % 01/29 4:16 PM [facility] Deoxyhemoglobin (HHB) Venous % 49.7 % 02/12/2025 4:16 PM [facility] Methemoglobin <0.8 0.0 - 2.0 % 02/12/2025 4:16 PM [facility] Carboxyhemoglobin 0.7 0.0 - 2.0 % 2024 4:16 PM [facility] O2 Content Venous 9.6 Interpret within clinical context ml/dL 02/12/2025 4:16 PM [facility] Hemoglobin by COOX 13.9 12.0 - 15.6 g/dL 02/12/2025 4:16 PM [facility] O2 Saturation Venous 50(L) >=70 % 01/29 4:16 PM [facility] FI O2 Mixed Venous 50.0 % 2024 4:16 PM CDT [facility] Blood BLOOD SPECIMEN / Unknown Venipuncture / Unknown 02/12/2025 4:08 PM CDT 02/12/2025 4:10 PM CDT Narrative [facility] - 02/12/2025 4:16 PM CDT Carboxyhemoglobin Normal Concentration: Non-smokers: 0-2%; Smokers: 0-9%; Toxic: >20% us Keven Hagan MD LAB - BLOOD GASES ORDER JAVIER Final Result Performing Organization Address [facility]/ZIP Co de Phone Number [address] [address], [place] [phone] * CK BLOOD (02/12/2025 4:08 PM CDT) Pathologist [facility] CK Total 95 30 - 200 U/L 02/12/2025 4:43 PM CDT [facility] Blood BLOOD SPECIMEN / Unknown Venipuncture / Unknown 02/12/2025 4:08 PM CDT 02/12/2025 4:13 PM CDT us Keven Hagan MD LAB - CHEMISTRY ORDERAB LES Final Result Performing Organization Address [facility] Co de Phone Number [address] [address], [place] [phone] * PT-INR [facility] (02/12/2025 3:59 PM CDT) PT 14.0 12.1 - 14.8 Seconds 02/12/2025 4:39 PM CDT [facility] INR 1.1 See Comment 02/12/2025 4:39 PM CDT [facility] Comment:The suggested therap eutic range for standard coumadin (warfarin) therapy is an INR of 2.0-3.0. For high-risk patients (Mechanical Mitral Valve Prosthesis, etc.), the suggested prophylactic therapeutic range is an INR of 2.5-3.5. Blood BLOOD SPECIMEN / Unknown Venipuncture / Unknown 02/12/2025 3:59 PM CDT 02/12/2025 4:10 PM CDT Keven Hagan MD LAB - COAGULATION ORDER JAVIER Final Result Performing Organization Address [facility]/ZIP Co de Phone Number [address] [address], [place] [phone] * TROPONIN-I HIGH SENSITIVE BASELINE + 1HR (02/12/2025 3:59 PM CDT) [facility] Troponin I High Sensitive 13 <=14 ng/L 02/12/2025 4:43 PM CDT [facility] Blood BLOOD SPECIMEN / Unknown Venipuncture / Unknown 02/12/2025 3:59 PM CDT 02/12/2025 4:12 PM CDT Keven Hagan MD LAB - CHEMISTRY ORDERAB LES Final Result Performing Organization Address [facility] Co de Phone Number [address] [address], [place] [phone] * TYPE + SCREEN PANEL (02/12/2025 3:59 PM CDT) [facility] Antibody Screen NEG 5:04 PM CDT [facility] ABO Rh B POS 02/12/2025 5:04 PM CDT [facility] Blood Bank BLOOD SPECIMEN / Unknown Venipuncture / Unknown 02/12/2025 3:59 PM CDT 02/12/2025 4:13 PM CDT Keven Hagan MD LAB - BLOOD BANK ORDERA BLES Final Result Performing Organization Address City/[facility]/ZIP Co de Phone Number [facility] [address] [place] [address], [place] [phone] * (ABNORMAL) COMPREHENSIVE METABOLIC PANEL (02/12/2025 3:59 PM CDT) [facility] BUN 12 7 - 26 mg/dL 02/12/2025 4:39 PM [facility] Creatinine 0.47(L) 0.56 - 0.96 mg/dL 02/12/2025 4:39 PM [facility] Sodium 133(L) 136 - 145 mmol/L 02/12/2025 4:39 PM [facility] Potassium 3.8 3.5 - 4.5 mmol/L 02/12/2025 4:39 PM [facility] Chloride 102 98 - 107 mmol/L 02/12/2025 4:39 PM [facility] CO2 22 22 - 29 mmol/L 02/12/2025 4:39 PM [facility] Glucose 102(H) 70 - 99 mg/dL 02/12/2025 4:39 PM [facility] Calcium 8.5 8.4 - 10.2 mg/dL 02/12/2025 4:39 PM [facility] Protein Total 6.5 6.0 - 8.3 g/dL 02/12/2025 4:39 PM [facility] Albumin 3.8 3.4 - 5.0 g/dL 02/12/2025 4:39 PM [facility] Bilirubin Total 0.5 0.2 - 1.2 mg/dL 02/12/2025 4:39 PM [facility] Alkaline Phosphatase 62 40 - 150 U/L 02/12/2025 4:39 PM [facility] ALT 30 5 - 55 U/L 02/12/2025 4:39 PM [facility] AST 24 5 - 34 U/L 02/12/2025 4:39 PM [facility] Anion Gap 9 6 - 16 02/12/2025 4:39 PM [facility] BUN/Creatinine Ratio 26(H) 7 - 23 02/12/2025 4:39 PM [facility] Osmolality Calculated 276 275 - 295 mOsm/kg 02/12/2025 4:39 PM [facility] Albumin/Globulin Ratio 1.4 1.1 - 2.3 02/12/2025 4:39 PM [facility] eGFR by CKD-EPI >90 >=90 mL/min/1.7 3 m2 02/12/2025 4:39 PM [facility] Blood BLOOD SPECIMEN / Unknown Venipuncture / Unknown 02/12/2025 3:59 PM CDT 02/12/2025 4:12 PM CDT Keven Hagan MD LAB - CHEMISTRY ORDERAB LES Final Result Performing Organization Address [facility]/ZIP Co de Phone Number [facility] [address] [place] [address], [facility] [phone] * CT ANGIO BRAIN NECK STROKE (02/12/2025 3:49 PM CDT) Anatomical Region Laterality Modality Head Computed Tomogra phy 02/12/2025 4:20 PM CDT Impressions 02/12/2025 4:40 PM CDT IMPRESSION: 1. No acute intracranial hemorrhage. 2. No large arterial occlusions or significant stenoses identified in the head or neck. Viz.AI was used for large vessel occlusion detection. > Interpreting Provider: Miladys Kaur MD on 02/12/2025 4:40 PM Narrative 02/12/2025 4:40 PM CDT PROCEDURE: CT ANGIO BRAIN NECK STROKE, DATE/TIME OF EXAM: 02/12/2025 3:50 PM, LOCATION [facility] INDICATION: Code Stroke ADDITIONAL CLINICAL INFORMATION: Ordering Provider Reason For Exam: Code stroke. Technologist Note: Reason for Exam->Code Stroke Additional: None. EXAMINATION: 1. Computed tomographic (CT) angiography of the head with contrast 2. CT angiography of the neck with contrast CONTRAST: IOPAMIDOL 76 % IV SOLN:100 mL TECHNIQUE: CT angiography of the head and neck was obtained after the uneventful administration of 100 mL Isovue-370 intravenous contrast. Three dimensional postprocessing was performed by the technologist and sent to the workstation for review. Stenosis measurements are based on NASCET criteria. CT dose reduction technique was used, including Automated Exposure Control. COMPARISON: CT of the head from 02/12/2025. FINDINGS: Non-angiographic findings: Please refer to the separately dictated noncontrast head CT for the non-angiographic findings. There are dependent opacities in the visualized lungs which could represent atelectasis or aspiration. Inflammation or superimposed infection cannot be excluded. Angiographic findings: There is atherosclerotic disease of the aortic arch. There is a common origin of the innominate and left common carotid arteries from the aortic arch. There is atherosclerotic calcification of the innominate and subclavian arteries. There is atherosclerotic disease of the right carotid bifurcation and origin of the right internal carotid artery with no significant focal stenosis by NASCET criteria. The right common and internal carotid arteries otherwise appear normal. There is atherosclerotic disease of the left carotid bifurcation and origin of the left internal carotid artery with no significant focal stenosis by NASCET criteria. The left common and internal carotid arteries otherwise appear normal. The left vertebral artery is dominant. The right vertebral artery is smaller in caliber. There is atherosclerotic disease involving the cervical vertebral arteries without significant focal stenosis. There is atherosclerotic disease involving the distal internal carotid arteries without significant focal stenosis. The anterior and middle cerebral arteries appear normal. The left vertebral artery is dominant. The right vertebral artery is a smaller in caliber. The distal vertebral arteries appear patent. The basilar artery and posterior cerebral arteries appear normal. No aneurysms, vascular occlusions, or intracranial stenoses are identified. Procedure Note Miladys Kaur MD - 02/12/2025 PROCEDURE: CT ANGIO BRAIN NECK STROKE, DATE/TIME OF EXAM: 53:50 PM, LOCATION [facility] INDICATION: Code Stroke ADDITIONAL CLINICAL INFORMATION: Ordering Provider Reason For Exam: Code stroke. Technologist Note: Reason for Exam->Code Stroke Additional: None. EXAMINATION: 1. Computed tomographic (CT) angiography of the head with contrast 2. CT angiography of the neck with contrast CONTRAST: IOPAMIDOL 76 % IV SOLN:100 mL TECHNIQUE: CT angiography of the head and neck was obtained after the uneventful administration of 100 mL Isovue-370 intravenous contrast.Three dimensional postprocessing was performed by the technologist and sent to the workstation for review. Stenosis measurements are based on NASCET criteria. CT dose reduction technique was used, including Automated Exposure Control. COMPARISON: CT of the head from 02/12/2025. FINDINGS: Non-angiographic findings: Please refer to the separately dictated noncontrast head CT for the non-angiographic findings. There are dependent opacities in the visualized lungs which couldrepresent atelectasis or aspiration. Inflammation or superimposed infection cannotbe excluded. Angiographic findings: There is atherosclerotic disease of the aortic arch. There is a common origin of the innominate and left common carotid arteries from theaortic arch. There is atherosclerotic calcification of the innominate and subclavian arteries. There is atherosclerotic disease of the rightcarotid bifurcation and origin of the right internal carotid artery with no significant focal stenosis by NASCET criteria. The right common and internal carotid arteries otherwise appear normal. There isatherosclerotic disease of the left carotid bifurcation and origin of the left internal carotid artery with no significant focal stenosis by NASCET criteria.The left common and internal carotid arteries otherwise appear normal. Theleft vertebral artery is dominant. The right vertebral artery is smaller in caliber. There is atherosclerotic disease involving the cervicalvertebral arteries without significant focal stenosis. There is atherosclerotic disease involving the distal internal carotid arteries without significant focal stenosis. The anterior and middle cerebral arteries appear normal. The left vertebral artery is dominant.The right vertebral artery is a smaller in caliber. The distal vertebral arteries appear patent. The basilar artery and posterior cerebralarteries appear normal. No aneurysms, vascular occlusions, or intracranialstenoses are identified. IMPRESSION: 1. No acute intracranial hemorrhage. 2. No large arterial occlusions or significant stenoses identified inthe head or neck. Viz.AI was used for large vessel occlusion detection. > Interpreting Provider: Miladys Kaur MD on 02/12/2025 4:40 PM us Keven Hagan MD CT ORDERABLES Final R esult * CT BRAIN - Stroke (02/12/2025 3:48 PM CDT) Anatomical Region Laterality Modality Head Computed Tomogra phy 02/12/2025 3:35 PM CDT Impressions 02/12/2025 3:45 PM CDT IMPRESSION: 1.No acute intracranial hemorrhage. 2.Chronic findings as outlined above.. 3.Please note that CT is insensitive to nonhemorrhagic strokes and MRI of the brain should be considered, if there is clinical concern for acute cerebral infarction. Disclaimer: 1.Brain areas including the cerebral sulci, the dural sinuses, the cavernous sinuses, the basilar artery/posterior circulation, the craniocervical junction, and the brain stem, may not be well evaluated on noncontrast CT. MRI of the brain is more sensitive for parenchymal changes related to the above-mentioned brain regions. If there is clinical concern for pathology involving the above-mentioned areas, MRI of the brain is recommended for further evaluation. Results of this exam were communicated with closed loop confirmation to Dr. España by Dr. Kaur on 02/12/2025 at 3:35 PM, with read back comprehension and verification. > Interpreting Provider: Miladys Kaur MD on 02/12/2025 3:45 PM Narrative 02/12/2025 3:45 PM CDT PROCEDURE: CT BRAIN STROKE, DATE/TIME OF EXAM: 02/12/2025 3:15 PM, LOCATION [facility] INDICATION: Code Stroke EXAMINATION: Computed tomography (CT) of the head without contrast ADDITIONAL CLINICAL INFORMATION: Ordering Provider Reason For Exam: Code stroke. Technologist Note: None. Additional: None. TECHNIQUE: CT of the head was performed without contrast according to standard protocol. CT dose reduction technique was used, including Automated Exposure Control. COMPARISON: No prior study is available for comparison at the time of this dictation. FINDINGS: No acute intra- or extra-axial fluid collections are identified. There is mild cerebral volume loss with associated ex vacuo ventricular dilatation. The basilar cisterns are patent. No mass effect or midline shift is seen. There are multiple foci of encephalomalacia in the upper aspect of the left basal ganglia/subinsular region and along the left temporal lobe posterior inferolateral aspect. The argueta-white matter differentiation otherwise appears normal. Periventricular white matter hypoattenuation is indicative of chronic small vessel ischemic disease. There is vascular calcification of the carotid siphons. No acute calvarial fracture is identified. The orbits appear normal. There is mild paranasal sinus disease. Partial opacification of the left sphenoid sinus. The mastoid air cells are grossly clear. No soft tissue abnormality is identified. Procedure Note Miladys Kaur MD - 02/12/2025 PROCEDURE: CT BRAIN STROKE, DATE/TIME OF EXAM: 02/12/2025 3:15 PM, LOCATION [facility] INDICATION: Code Stroke EXAMINATION: Computed tomography (CT) of the head without contrast ADDITIONAL CLINICAL INFORMATION: Ordering Provider Reason For Exam: Code stroke. Technologist Note: None. Additional: None. TECHNIQUE: CT of the head was performed without contrast according to standard protocol. CT dose reduction technique was used, including Automated Exposure Control. COMPARISON: No prior study is available for comparison at the time ofthis dictation. FINDINGS: No acute intra- or extra-axial fluid collections are identified. Thereis mild cerebral volume loss with associated ex vacuo ventriculardilatation. The basilar cisterns are patent. No mass effect or midline shift isseen. There are multiple foci of encephalomalacia in the upper aspect of theleft basal ganglia/subinsular region and along the left temporal lobeposterior inferolateral aspect. The argueta-white matter differentiation otherwise appears normal. Periventricular white matter hypoattenuation isindicative of chronic small vessel ischemic disease. There is vascularcalcification of the carotid siphons. No acute calvarial fracture is identified. The orbits appear normal. There is mild paranasal sinus disease. Partial opacification of the left sphenoid sinus. The mastoid air cells aregrossly clear. No soft tissue abnormality is identified. IMPRESSION: 1.No acute intracranial hemorrhage. 2.Chronic findings as outlined above.. 3.Please note that CT is insensitive to nonhemorrhagic strokes and MRIof the brain should be considered, if there is clinical concern for acute cerebral infarction. Disclaimer: 1.Brain areas including the cerebral sulci, the dural sinuses, the cavernous sinuses, the basilar artery/posterior circulation, the craniocervical junction, and the brain stem, may not be well evaluatedon noncontrast CT. MRI of the brain is more sensitive for parenchymalchanges related to the above-mentioned brain regions. If there is clinicalconcern for pathology involving the above-mentioned areas, MRI of the brain is recommended for further evaluation. Results of this exam were communicated with closed loop confirmation toDr. España by Dr. Kaur on 02/12/2025 at 3:35 PM, with read back comprehension and verification. > Interpreting Provider: Miladys Kaur MD on 02/12/2025 3:45 PM us Keven Hagan MD CT ORDERABLES Final R esult * CREATININE - POCT INTERFACED (02/12/2025 3:39 PM CDT) Creatinine POCT 0.36 0.30 - 1.30 mg/dL 02/12/2025 3:48 PM CDT [facility] eGFR >90 >=90 mL/min/1.7 3 m2 02/12/2025 3:48 PM CDT [facility] Blood BLOOD SPECIMEN / Unknown 02/12/2025 3:39 PM CDT 02/12/2025 3:48 PM CDT us Keven Hagan MD LAB - POINT OF CARE ORD ERABLES Final Result [facility] [address] [place] [address], [place] [phone] * INR WHOLE BLOOD - POINT OF CARE (IP) STROKE (02/12/2025 3:37 PM CDT) INR 1.0 0.9 - 1.2 02/12/2025 3:48 PM CDT [facility] Device [id number] 02/12/2025 3:48 PM CDT [facility] [employer] Consultant ID [id number] 02/12/2025 3:48 PM CDT [facility] Blood BLOOD SPECIMEN / Unknown 02/12/2025 3:37 PM CDT 02/12/2025 3:48 PM CDT us Keven Hagan MD LAB - POINT OF CARE ORD ERABLES Final Result [facility] [address] [place] [address], [place] [phone] from Last 3 Months Insurance [employer] Advance Directives * Full Code (Latest Code Status on File) Date Activated Date Inactivated Comments 02/12/2025 3:50 PM 02/16/2025 1:49 PM Care Teams Chief Physical Therapist Relationship Specialty Start Date End Date Vani Murillo MD [address] [place] [address] PCP - General Family Medicine 02/05/25
--- OUTSIDE RECORDS SUMMARY | 2025-04-27 09:34 | XMS_ITS | Clinical Summary ---
Author Organization [facility] [address] [place] [id number] Care Team Providers Care R D Manager Name Role Phone Vani Murillo MD Primary Care Provider [phone] Allergies No known active allergies Medications naproxen [...] (eight) hours as needed for pain Active Hospital, Clinic, or Other Facility Administered Medication Ordered Dose Route Frequency Start Date End Date Status onabotulinumtoxin A (BOTOX) injection 300 UnitsIndications:Muscle spasticity 300 Units IM Once 04/12/2025 04/13/2025 Ended Active Problems Problem Noted Date Diagnosed Date Muscle spasticity 06/10/2022 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 06/10/2022 Unspecified injury of head, sequela 06/10/2022 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) 04/19/2010 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 Encounters Date Type Department Care Team Description 03/15/2025 Orders Only [facility] Orthopaedic Surgery [address] [address] [place] [address] [place] [address] Kayla Swenson MD Muscle spasticity (Primary Dx) from Last 3 Months Social History Tobacco Use Types Packs/Day Years Used Date Smoking Tobacco: Every Day Tobacco Cessation:Ready to Q uit: Not Asked; Counseling Given: Not Answered Comments Unknown Sex and Gender Information Value Date Recorded Sex Assigned at Not on file Legal Sex Female 9:28 PM STORAGE MANAGEMENT ARCHITECT Gender Identity Female 11/04/2024 9:42 AM STORAGE MANAGEMENT ARCHITECT Sexual Orientation Asexual 11/04/2024 9: 42 AM STORAGE MANAGEMENT ARCHITECT Obstetrics History Last Filed Vital Signs Vital Sign Reading Time Taken Comments Blood Pressure 137/94 01/10/2025 2:19 PM STORAGE MANAGEMENT ARCHITECT Pulse 79 01/10/2025 2:19 PM STORAGE MANAGEMENT ARCHITECT Temperature 37.1 C (98.7 F) 06/10/2022 11:10 AM CDT Respiratory Rate 18 04/27/2024 3:27 PM CDT Oxygen Saturation 97% 08/30/2014 2:03 PM CDT Inhaled Oxygen Concentration - - Weight 73.9 kg (163 lb) 01/10/2025 2:19 PM STORAGE MANAGEMENT ARCHITECT Height 162.6 cm (5' 4) 01/27/2024 3:47 PM STORAGE MANAGEMENT ARCHITECT Body Mass Index 27.98 01/27/2024 3:47 PM STORAGE MANAGEMENT ARCHITECT Plan of Treatment Health Maintenance Due Date Last Done Comments Breast Cancer Screening-Mammogram 1967 Cervical Cancer Screening 1967 Colon Cancer Screening-Colonoscopy 1967 Depression Screening 1967 Hepatitis C Screening 1967 Hepatitis B Screening 1985 Regular Well Visit/Exam 18-64 1985 Pneumococcal vaccine <65 (1 of 2 - PCV) 1986 Zoster Vaccine (1 of 2) 2017 Covid-19 Vaccine (3 - season) 08/01/202408/2021, 02/04/2021 Influenza Vaccine (Season Ended) 2025 09/18/20 21, 11/03/2019 DTaP/Tdap/Td Vaccine (3 - Td or Tdap) 09/18/2031, 03/20/2009 Insurance Care Teams R D Manager Relationship Specialty Start Date End Date Vani Murillo MD PCP - General Family Medicine 09/28/21
--- OUTSIDE RECORDS SUMMARY | 2025-04-27 09:34 | XMS_ITS | Referral Summary ---
Author Organization [facility] Physician Office Building [address] [place] [phone] Care Team Providers Care Labor Expediter Name Role Phone Vani Murillo MD Primary Care Provider [phone] Encounters Date Type Department Care Team Description 03/15/2025 Orders Only [facility] Orthopaedic Surgery [address] [facility] [address] [place] [address] [place] [address] Kayla Swenson MD Muscle spasticity (Primary Dx) from Last 3 Months Allergies No known [...] on file Legal Sex Female 9:28 PM PRODUCT DESIGN MANAGER Gender Identity Female 11/04/2024 9:42 AM PRODUCT DESIGN MANAGER Sexual Orientation Asexual 11/04/2024 9: 42 AM PRODUCT DESIGN MANAGER Last Filed Vital Signs Vital Sign Reading Time Taken Comments Blood Pressure 137/94 01/10/2025 2:19 PM PRODUCT DESIGN MANAGER Pulse 79 01/10/2025 2:19 PM PRODUCT DESIGN MANAGER Temperature 37.1 C (98.7 F) 06/10/2022 11:10 AM CDT Respiratory Rate 18 04/27/2024 3:27 PM CDT Oxygen Saturation 97% 08/30/2014 2:03 PM CDT Inhaled Oxygen Concentration - - Weight 73.9 kg (163 lb) 01/10/2025 2:19 PM PRODUCT DESIGN MANAGER Height 162.6 cm (5' 4) 01/27/2024 3:47 PM PRODUCT DESIGN MANAGER Body Mass Index 27.98 01/27/2024 3:47 PM PRODUCT DESIGN MANAGER Plan of Treatment Not on file Insurance [facility] [employer] [id number] [facility] [employer] [id number] Care Teams Labor Expediter Relationship Specialty Start Date End Date Vani Murillo MD PCP - General Family Medicine 09/28/21
[2025-04-27 10:55] LABS: Alanine Aminotransferase 28 U/L (6-35); Albumin Level 4.7 g/dL (3.5-5.1); Alkaline Phosphatase 86 U/L (38-126); Anion Gap 10 mmol/L (4-12); Aspartate Amino Transferase 29 U/L (14-36); Bilirubin,Total 0.5 mg/dL (0.2-1.3); Blood Urea Nitrogen 18 mg/dL (7-17); Calcium 9.3 mg/dL (8.4-10.2); Carbon Dioxide 25 mmol/L (22-30); Chloride 106 mmol/L (98-107); Cholesterol 202 mg/dL (0-200); Estimated Glomerular Filt Rate > 60; Glucose 107 mg/dL (65-110); HDL Direct 60 mg/dL; Sodium 141 mmol/L (137-145); Triglycerides 144 mg/dL (<150)
[2025-04-27 10:58] LABS: Hemoglobin A1C 5.5 % (<5.7)
[2025-04-27 11:07] LABS: LDL Cholesterol Direct 92 mg/dL
[2025-04-27 11:11] LABS: Vitamin D 25 Hydroxy 80.4 ng/mL
== END 2025-04-27 09:28 | disposition home or self-care (01) ==
LOC: ANHLAB 09:28
PROVIDERS: PCP Family Medicine; Visit Provider Family Medicine
DX: Z00.00 Encounter for general adult medical examination without abnormal findings (principal); E78.2 Mixed hyperlipidemia; E55.9 Vitamin D deficiency, unspecified; R53.83 Other fatigue; Z13.1 Encounter for screening for diabetes mellitus
CPT/HCPCS: 36415; 80053; 80061; 82306; 83036; 84443